=== PATIENT | female | born 1960 | race Caucasian/White ===

== ENCOUNTER → 2018-11-29 | Outpatient (CLI) | payer BC | LOC: WOUNDCARE 10:05 | PROVIDERS: ATTEND Nurse Practitioner | DX: E11.621 Type 2 diabetes mellitus with foot ulcer (principal); L97.512 Non-pressure chronic ulcer of other part of right foot with fat layer exposed | CPT/HCPCS: 11042 ==

== ENCOUNTER → 2018-12-06 | Outpatient (CLI) | payer BC | LOC: WOUNDCARE 09:57 | PROVIDERS: ATTEND Nurse Practitioner | DX: E11.621 Type 2 diabetes mellitus with foot ulcer (principal); L97.512 Non-pressure chronic ulcer of other part of right foot with fat layer exposed | CPT/HCPCS: 97597 ==

== ENCOUNTER → 2018-12-13 | Outpatient (CLI) | payer BC | LOC: EDBD 10:03 → WOUNDCARE 10:03 | PROVIDERS: ATTEND Nurse Practitioner | DX: E11.621 Type 2 diabetes mellitus with foot ulcer (principal); L97.512 Non-pressure chronic ulcer of other part of right foot with fat layer exposed | CPT/HCPCS: 87070; 87075; 87077; 87205; 99213 ==

== ENCOUNTER → 2018-12-20 | Outpatient (CLI) | payer BC | LOC: WOUNDCARE 09:52 | PROVIDERS: ATTEND Nurse Practitioner | DX: E11.621 Type 2 diabetes mellitus with foot ulcer (principal); L97.512 Non-pressure chronic ulcer of other part of right foot with fat layer exposed | CPT/HCPCS: 11042; 97597 ==

== ENCOUNTER → 2018-12-27 | Outpatient (CLI) | payer BC | LOC: WOUNDCARE 09:47 | PROVIDERS: ATTEND Surgery | DX: E11.621 Type 2 diabetes mellitus with foot ulcer (principal); L97.512 Non-pressure chronic ulcer of other part of right foot with fat layer exposed | CPT/HCPCS: 11042 ==

== ENCOUNTER → 2019-01-03 | Outpatient (CLI) | payer BC ==
--- NOTE | 2019-01-03 19:13 | Diagnostic Imaging Report ---
INDICATION: Swelling, concern for infection. TECHNIQUE: Three views of the right foot. CORRELATION STUDY: None. FINDINGS: Generalized soft tissue edema is present. Slight distortion of the subtalar joints with slight collapse of the hindfoot present. Alignment is otherwise anatomic. Freddy bony erosive or destructive changes are not suggested. No significant periosteal reaction. Mildly prominent plantar calcaneal spur formation. IMPRESSION: 1. Soft tissue swelling about the foot. No acute bony abnormality or freddy bony erosive or destructive change. If symptoms persist and/or clinically warranted, MRI would be more sensitive means for assessment of potential osteomyelitis. Dictated by: Dictated on workstation # [id number]
== END ==
LOC: RAD 11:10
PROVIDERS: ATTEND Nurse Practitioner
DX: E11.621 Type 2 diabetes mellitus with foot ulcer (principal); L97.512 Non-pressure chronic ulcer of other part of right foot with fat layer exposed; M79.89 Other specified soft tissue disorders
CPT/HCPCS: 73630

== ENCOUNTER → 2019-01-03 | Outpatient (CLI) | payer BC | LOC: WOUNDCARE 09:32 | PROVIDERS: ATTEND Nurse Practitioner | DX: E11.621 Type 2 diabetes mellitus with foot ulcer (principal); L97.512 Non-pressure chronic ulcer of other part of right foot with fat layer exposed ==

== ENCOUNTER → 2019-01-10 | Outpatient (CLI) | payer BC | LOC: WOUNDCARE 09:47 | PROVIDERS: ATTEND Nurse Practitioner | DX: E11.621 Type 2 diabetes mellitus with foot ulcer (principal); L97.512 Non-pressure chronic ulcer of other part of right foot with fat layer exposed ==

== ENCOUNTER → 2019-01-17 | Outpatient (CLI) | payer BC | LOC: WOUNDCARE 09:50 | PROVIDERS: ATTEND Nurse Practitioner | DX: E11.621 Type 2 diabetes mellitus with foot ulcer (principal); L97.512 Non-pressure chronic ulcer of other part of right foot with fat layer exposed | CPT/HCPCS: 11042; 87070; 87075; 87205 ==

== ENCOUNTER → 2019-01-24 | Outpatient (CLI) | payer BC | LOC: WOUNDCARE 09:52 | PROVIDERS: ATTEND Nurse Practitioner | DX: E11.621 Type 2 diabetes mellitus with foot ulcer (principal); L97.512 Non-pressure chronic ulcer of other part of right foot with fat layer exposed | CPT/HCPCS: 11042 ==

== ENCOUNTER → 2019-01-31 | Outpatient (CLI) | payer BC | LOC: WOUNDCARE 09:52 | PROVIDERS: ATTEND Nurse Practitioner | DX: E11.621 Type 2 diabetes mellitus with foot ulcer (principal); L97.512 Non-pressure chronic ulcer of other part of right foot with fat layer exposed | CPT/HCPCS: 11042 ==

== ENCOUNTER → 2019-02-07 | Outpatient (CLI) | payer BC | LOC: WOUNDCARE 12:45 | PROVIDERS: ATTEND Surgery | DX: E11.621 Type 2 diabetes mellitus with foot ulcer (principal); L97.512 Non-pressure chronic ulcer of other part of right foot with fat layer exposed; I89.0 Lymphedema, not elsewhere classified; L95.8 Other vasculitis limited to the skin | CPT/HCPCS: 11106 ==

== ENCOUNTER → 2019-02-14 | Outpatient (CLI) | payer BC | LOC: WOUNDCARE 09:32 | PROVIDERS: ATTEND Nurse Practitioner | DX: E11.621 Type 2 diabetes mellitus with foot ulcer (principal); L97.512 Non-pressure chronic ulcer of other part of right foot with fat layer exposed; L95.8 Other vasculitis limited to the skin; I89.0 Lymphedema, not elsewhere classified; L88 Pyoderma gangrenosum | CPT/HCPCS: 99213 ==

== ENCOUNTER → 2019-02-21 | Outpatient (CLI) | payer BC | LOC: WOUNDCARE 09:46 | PROVIDERS: ATTEND Nurse Practitioner | DX: E11.621 Type 2 diabetes mellitus with foot ulcer (principal); L97.512 Non-pressure chronic ulcer of other part of right foot with fat layer exposed; L95.8 Other vasculitis limited to the skin; I89.0 Lymphedema, not elsewhere classified; L88 Pyoderma gangrenosum | CPT/HCPCS: 99213 ==

== ENCOUNTER → 2019-03-14 | Outpatient (CLI) | payer BC | LOC: WOUNDCARE 09:51 | PROVIDERS: ATTEND Nurse Practitioner | DX: E11.621 Type 2 diabetes mellitus with foot ulcer (principal); L97.512 Non-pressure chronic ulcer of other part of right foot with fat layer exposed; L95.8 Other vasculitis limited to the skin; I89.0 Lymphedema, not elsewhere classified; L88 Pyoderma gangrenosum | CPT/HCPCS: 99213 ==

== ENCOUNTER → 2019-03-21 | Outpatient (CLI) | payer BC | LOC: WOUNDCARE 09:54 | PROVIDERS: ATTEND Nurse Practitioner | DX: E11.621 Type 2 diabetes mellitus with foot ulcer (principal); L97.512 Non-pressure chronic ulcer of other part of right foot with fat layer exposed; L95.8 Other vasculitis limited to the skin; I89.0 Lymphedema, not elsewhere classified; L88 Pyoderma gangrenosum | CPT/HCPCS: 99213 ==

== ENCOUNTER → 2019-03-28 | Outpatient (CLI) | payer BC | LOC: WOUNDCARE 09:45 | PROVIDERS: ATTEND Surgery | DX: E11.621 Type 2 diabetes mellitus with foot ulcer (principal); L97.512 Non-pressure chronic ulcer of other part of right foot with fat layer exposed; L95.8 Other vasculitis limited to the skin; I89.0 Lymphedema, not elsewhere classified; L88 Pyoderma gangrenosum | CPT/HCPCS: 99213 ==

== ENCOUNTER → 2019-04-04 | Outpatient (CLI) | payer BC | LOC: WOUNDCARE 09:55 | PROVIDERS: ATTEND Nurse Practitioner | DX: E11.621 Type 2 diabetes mellitus with foot ulcer (principal); L97.512 Non-pressure chronic ulcer of other part of right foot with fat layer exposed; L95.8 Other vasculitis limited to the skin; I89.0 Lymphedema, not elsewhere classified; L88 Pyoderma gangrenosum | CPT/HCPCS: 99213 ==

== ENCOUNTER → 2019-04-11 | Outpatient (CLI) | payer BC | LOC: WOUNDCARE 09:51 | PROVIDERS: ATTEND Nurse Practitioner | DX: E11.621 Type 2 diabetes mellitus with foot ulcer (principal); L88 Pyoderma gangrenosum; L97.512 Non-pressure chronic ulcer of other part of right foot with fat layer exposed; L95.8 Other vasculitis limited to the skin; I89.0 Lymphedema, not elsewhere classified | CPT/HCPCS: 99213 ==

== ENCOUNTER → 2019-04-18 | Outpatient (CLI) | payer BC ==
--- NOTE | 2019-04-18 12:41 | Diagnostic Imaging Report ---
INDICATION: Foot ulcer. COMPARISON: 01/03/2019 TECHNIQUE: Three radiographs of the right foot dated 04/18/2019. FINDINGS: No acute fracture or dislocation. No destructive osseous process. Small posterior and plantar calcaneal enthesophytes. Scattered degenerative changes are present, greatest within the hindfoot, particularly the subtalar joints and talonavicular joint. Prominent os trigonum is present. No suspicious radiopaque foreign body. IMPRESSION: 1. No acute osseous abnormality with scattered degenerative changes, greatest involving the hindfoot. 2. Soft tissue swelling without associated osseous destruction. If there remains clinical concern for underlying osteomyelitis, followup radiographs in 10-14 days could be obtained. Alternatively, an MRI of the foot would be an additional consideration. Dictated by: Dictated on workstation # [id number]
== END ==
LOC: RAD 10:59
PROVIDERS: ATTEND Nurse Practitioner
DX: E11.621 Type 2 diabetes mellitus with foot ulcer (principal); L88 Pyoderma gangrenosum; L97.512 Non-pressure chronic ulcer of other part of right foot with fat layer exposed; L95.8 Other vasculitis limited to the skin; I89.0 Lymphedema, not elsewhere classified
CPT/HCPCS: 73630

== ENCOUNTER → 2019-04-18 | Outpatient (CLI) | payer BC | LOC: WOUNDCARE 09:51 | PROVIDERS: ATTEND Nurse Practitioner | DX: L97.512 Non-pressure chronic ulcer of other part of right foot with fat layer exposed (principal); E11.621 Type 2 diabetes mellitus with foot ulcer; E11.52 Type 2 diabetes mellitus with diabetic peripheral angiopathy with gangrene; L95.8 Other vasculitis limited to the skin; I89.0 Lymphedema, not elsewhere classified; I96 Gangrene, not elsewhere classified | CPT/HCPCS: 99213 ==

== ENCOUNTER → 2019-04-25 | Outpatient (CLI) | payer BC | LOC: WOUNDCARE 09:45 | PROVIDERS: ATTEND Nurse Practitioner | DX: E11.621 Type 2 diabetes mellitus with foot ulcer (principal); L97.512 Non-pressure chronic ulcer of other part of right foot with fat layer exposed; L95.8 Other vasculitis limited to the skin; I89.0 Lymphedema, not elsewhere classified; E11.52 Type 2 diabetes mellitus with diabetic peripheral angiopathy with gangrene; I96 Gangrene, not elsewhere classified | CPT/HCPCS: 99213 ==

== ENCOUNTER → 2019-05-02 | Outpatient (CLI) | payer BC | LOC: WOUNDCARE 09:46 | PROVIDERS: ATTEND Nurse Practitioner | DX: E11.52 Type 2 diabetes mellitus with diabetic peripheral angiopathy with gangrene (principal); E11.621 Type 2 diabetes mellitus with foot ulcer; I96 Gangrene, not elsewhere classified; L97.512 Non-pressure chronic ulcer of other part of right foot with fat layer exposed; I89.0 Lymphedema, not elsewhere classified; L95.8 Other vasculitis limited to the skin | CPT/HCPCS: 99213 ==

== ENCOUNTER → 2019-05-09 | Outpatient (CLI) | payer BC | LOC: WOUNDCARE 09:55 | PROVIDERS: ATTEND Nurse Practitioner | DX: E11.621 Type 2 diabetes mellitus with foot ulcer (principal); E11.52 Type 2 diabetes mellitus with diabetic peripheral angiopathy with gangrene; L97.512 Non-pressure chronic ulcer of other part of right foot with fat layer exposed; I96 Gangrene, not elsewhere classified; L95.8 Other vasculitis limited to the skin; I89.0 Lymphedema, not elsewhere classified | CPT/HCPCS: 99213 ==

== ENCOUNTER → 2019-05-16 | Outpatient (CLI) | payer BC | LOC: WOUNDCARE 09:47 | PROVIDERS: ATTEND Nurse Practitioner | DX: E11.621 Type 2 diabetes mellitus with foot ulcer (principal); L97.512 Non-pressure chronic ulcer of other part of right foot with fat layer exposed; L95.8 Other vasculitis limited to the skin; I89.0 Lymphedema, not elsewhere classified; I96 Gangrene, not elsewhere classified | CPT/HCPCS: 99213 ==

== ENCOUNTER → 2019-05-30 | Outpatient (CLI) | payer BC, OTHER | LOC: WOUNDCARE 09:54 | PROVIDERS: ATTEND Nurse Practitioner | DX: E11.621 Type 2 diabetes mellitus with foot ulcer (principal); E11.52 Type 2 diabetes mellitus with diabetic peripheral angiopathy with gangrene; L97.512 Non-pressure chronic ulcer of other part of right foot with fat layer exposed; I96 Gangrene, not elsewhere classified; L95.8 Other vasculitis limited to the skin | CPT/HCPCS: 99213 ==

== ENCOUNTER → 2019-06-06 | Outpatient (CLI) | payer OTHER | LOC: WOUNDCARE 09:50 | PROVIDERS: ATTEND Nurse Practitioner | DX: E11.621 Type 2 diabetes mellitus with foot ulcer (principal); E11.52 Type 2 diabetes mellitus with diabetic peripheral angiopathy with gangrene; L88 Pyoderma gangrenosum; L97.512 Non-pressure chronic ulcer of other part of right foot with fat layer exposed; L95.8 Other vasculitis limited to the skin; I89.0 Lymphedema, not elsewhere classified | CPT/HCPCS: 17250 ==

== ENCOUNTER → 2019-06-12 | Outpatient (CLI) | payer OTHER ==
[2019-06-12 09:46] LABS: CALCIUM 10.3 MG/DL (8.5-10.1); CREATININE SERUM 1.38 MG/DL (0.60-1.30); POTASSIUM 3.4 MMOL/L (3.6-5.0)
== END ==
LOC: LAB FS 08:55
PROVIDERS: ATTEND Nurse Practitioner
DX: E11.621 Type 2 diabetes mellitus with foot ulcer (principal); L88 Pyoderma gangrenosum; L97.512 Non-pressure chronic ulcer of other part of right foot with fat layer exposed; L95.8 Other vasculitis limited to the skin; I89.0 Lymphedema, not elsewhere classified
CPT/HCPCS: 36415; 80048; 83036

== ENCOUNTER → 2019-06-13 | Outpatient (CLI) | payer OTHER | LOC: WOUNDCARE 09:49 | PROVIDERS: ATTEND Nurse Practitioner | DX: E11.621 Type 2 diabetes mellitus with foot ulcer (principal); L88 Pyoderma gangrenosum; L97.512 Non-pressure chronic ulcer of other part of right foot with fat layer exposed; L95.8 Other vasculitis limited to the skin; I89.0 Lymphedema, not elsewhere classified; E11.52 Type 2 diabetes mellitus with diabetic peripheral angiopathy with gangrene; I96 Gangrene, not elsewhere classified | CPT/HCPCS: 17250 ==

== ENCOUNTER → 2019-06-20 | Outpatient (CLI) | payer OTHER | LOC: WOUNDCARE 09:43 | PROVIDERS: ATTEND Nurse Practitioner | DX: E11.621 Type 2 diabetes mellitus with foot ulcer (principal); E11.52 Type 2 diabetes mellitus with diabetic peripheral angiopathy with gangrene; I96 Gangrene, not elsewhere classified; L97.512 Non-pressure chronic ulcer of other part of right foot with fat layer exposed; L95.8 Other vasculitis limited to the skin; I89.0 Lymphedema, not elsewhere classified | CPT/HCPCS: 99213 ==

== ENCOUNTER → 2019-06-27 | Outpatient (CLI) | payer OTHER | LOC: WOUNDCARE 09:49 | PROVIDERS: ATTEND Nurse Practitioner | DX: E11.621 Type 2 diabetes mellitus with foot ulcer (principal); E11.52 Type 2 diabetes mellitus with diabetic peripheral angiopathy with gangrene; L88 Pyoderma gangrenosum; L97.512 Non-pressure chronic ulcer of other part of right foot with fat layer exposed; L95.8 Other vasculitis limited to the skin; I89.0 Lymphedema, not elsewhere classified | CPT/HCPCS: 97597 ==

== ENCOUNTER → 2019-07-04 | Outpatient (CLI) | payer OTHER | LOC: WOUNDCARE 09:42 | PROVIDERS: ATTEND Nurse Practitioner | DX: E11.621 Type 2 diabetes mellitus with foot ulcer (principal); E11.52 Type 2 diabetes mellitus with diabetic peripheral angiopathy with gangrene; L88 Pyoderma gangrenosum; L97.512 Non-pressure chronic ulcer of other part of right foot with fat layer exposed; L95.8 Other vasculitis limited to the skin; I89.0 Lymphedema, not elsewhere classified | CPT/HCPCS: 99213 ==

== ENCOUNTER → 2019-07-11 | Outpatient (CLI) | payer OTHER | LOC: WOUNDCARE 09:46 | PROVIDERS: ATTEND Nurse Practitioner | DX: E11.621 Type 2 diabetes mellitus with foot ulcer (principal); E11.52 Type 2 diabetes mellitus with diabetic peripheral angiopathy with gangrene; L97.212 Non-pressure chronic ulcer of right calf with fat layer exposed; L88 Pyoderma gangrenosum; L95.8 Other vasculitis limited to the skin; I89.0 Lymphedema, not elsewhere classified | CPT/HCPCS: 99213 ==

== ENCOUNTER → 2019-07-18 | Outpatient (CLI) | payer OTHER | LOC: WOUNDCARE 09:51 | PROVIDERS: ATTEND Nurse Practitioner | DX: E11.621 Type 2 diabetes mellitus with foot ulcer (principal); E11.52 Type 2 diabetes mellitus with diabetic peripheral angiopathy with gangrene; L88 Pyoderma gangrenosum; L97.512 Non-pressure chronic ulcer of other part of right foot with fat layer exposed; L95.8 Other vasculitis limited to the skin; I89.0 Lymphedema, not elsewhere classified | CPT/HCPCS: 87070; 87075; 87077; 87205; 99213 ==

== ENCOUNTER → 2019-07-25 | Outpatient (CLI) | payer OTHER | LOC: WOUNDCARE 09:34 | PROVIDERS: ATTEND Nurse Practitioner | DX: E11.621 Type 2 diabetes mellitus with foot ulcer (principal); E11.52 Type 2 diabetes mellitus with diabetic peripheral angiopathy with gangrene; L88 Pyoderma gangrenosum; L97.512 Non-pressure chronic ulcer of other part of right foot with fat layer exposed; L95.8 Other vasculitis limited to the skin; I89.0 Lymphedema, not elsewhere classified | CPT/HCPCS: 99213 ==

== ENCOUNTER → 2019-08-01 | Outpatient (CLI) | payer OTHER | LOC: WOUNDCARE 09:49 | PROVIDERS: ATTEND Nurse Practitioner | DX: E11.621 Type 2 diabetes mellitus with foot ulcer (principal); E11.52 Type 2 diabetes mellitus with diabetic peripheral angiopathy with gangrene; L97.512 Non-pressure chronic ulcer of other part of right foot with fat layer exposed; L88 Pyoderma gangrenosum; L95.9 Vasculitis limited to the skin, unspecified; I89.0 Lymphedema, not elsewhere classified | CPT/HCPCS: 99213 ==

== ENCOUNTER → 2019-08-08 | Outpatient (CLI) | payer OTHER | LOC: WOUNDCARE 09:48 | PROVIDERS: ATTEND Nurse Practitioner | DX: E11.621 Type 2 diabetes mellitus with foot ulcer (principal); L88 Pyoderma gangrenosum; L97.512 Non-pressure chronic ulcer of other part of right foot with fat layer exposed; L95.8 Other vasculitis limited to the skin; I89.0 Lymphedema, not elsewhere classified; E11.52 Type 2 diabetes mellitus with diabetic peripheral angiopathy with gangrene ==

== ENCOUNTER → 2019-08-10 | Outpatient (CLI) | payer OTHER | LOC: WOUNDCARE 10:49 | PROVIDERS: ATTEND Nurse Practitioner | DX: E11.621 Type 2 diabetes mellitus with foot ulcer (principal); L97.512 Non-pressure chronic ulcer of other part of right foot with fat layer exposed; I10 Essential (primary) hypertension; M19.90 Unspecified osteoarthritis, unspecified site | CPT/HCPCS: 29581 ==

== ENCOUNTER → 2019-08-17 | Outpatient (CLI) | payer OTHER | LOC: WOUNDCARE 09:20 | PROVIDERS: ATTEND Nurse Practitioner | DX: E11.621 Type 2 diabetes mellitus with foot ulcer (principal); E11.52 Type 2 diabetes mellitus with diabetic peripheral angiopathy with gangrene; L88 Pyoderma gangrenosum; L97.512 Non-pressure chronic ulcer of other part of right foot with fat layer exposed; L95.8 Other vasculitis limited to the skin; I89.0 Lymphedema, not elsewhere classified | CPT/HCPCS: 11042 ==

== ENCOUNTER → 2019-08-22 | Outpatient (CLI) | payer OTHER | LOC: WOUNDCARE 09:53 | PROVIDERS: ATTEND Nurse Practitioner | DX: E11.621 Type 2 diabetes mellitus with foot ulcer (principal); L88 Pyoderma gangrenosum; L97.512 Non-pressure chronic ulcer of other part of right foot with fat layer exposed; L95.9 Vasculitis limited to the skin, unspecified; I89.0 Lymphedema, not elsewhere classified; E11.52 Type 2 diabetes mellitus with diabetic peripheral angiopathy with gangrene | CPT/HCPCS: 11042 ==

== ENCOUNTER → 2019-08-29 | Outpatient (CLI) | payer OTHER | LOC: WOUNDCARE 09:45 | PROVIDERS: ATTEND Nurse Practitioner | DX: E11.621 Type 2 diabetes mellitus with foot ulcer (principal); E11.52 Type 2 diabetes mellitus with diabetic peripheral angiopathy with gangrene; L88 Pyoderma gangrenosum; L95.8 Other vasculitis limited to the skin; I89.0 Lymphedema, not elsewhere classified; L97.512 Non-pressure chronic ulcer of other part of right foot with fat layer exposed | CPT/HCPCS: 11042 ==

== ENCOUNTER → 2019-09-04 | Outpatient (CLI) | payer OTHER ==
[~2019-09-04] MED LIST: ATOR10TA66; DAPS100T3; DICL75TA2; GABA-490; HYDR-3812; HYDR25TA4; PIOG30TA71; PNT400TCR; POTA20TA15; PRED5TAB
== END ==
LOC: WOUNDCARE 09:49
PROVIDERS: ATTEND Surgery
DX: E11.621 Type 2 diabetes mellitus with foot ulcer (principal); E11.52 Type 2 diabetes mellitus with diabetic peripheral angiopathy with gangrene; L97.511 Non-pressure chronic ulcer of other part of right foot limited to breakdown of skin; I89.0 Lymphedema, not elsewhere classified; L97.512 Non-pressure chronic ulcer of other part of right foot with fat layer exposed; L95.8 Other vasculitis limited to the skin; L88 Pyoderma gangrenosum
CPT/HCPCS: 11042

== ENCOUNTER → 2019-09-12 | Outpatient (CLI) | payer OTHER | LOC: WOUNDCARE 09:41 | PROVIDERS: ATTEND Nurse Practitioner | DX: E11.621 Type 2 diabetes mellitus with foot ulcer (principal); E11.52 Type 2 diabetes mellitus with diabetic peripheral angiopathy with gangrene; L97.511 Non-pressure chronic ulcer of other part of right foot limited to breakdown of skin; I89.0 Lymphedema, not elsewhere classified; L97.512 Non-pressure chronic ulcer of other part of right foot with fat layer exposed; L88 Pyoderma gangrenosum | CPT/HCPCS: 11042 ==

== ENCOUNTER 2019-09-24 12:54 | Emergency (ER) | payer OTHER ==
[~2019-09-24] VITALS: Ht 165.1 cm; Wt 231.0 kg
--- NOTE | 2019-09-24 13:12 | ED Integumentary General ---
General Stated Complaint: BLEEDING FROM LT CALF History of Present Illness Date Seen by Provider: Sep 24, 2019 Time Seen by Provider: 13:12 Initial Comments 48-year-old female presents with bleeding varicose vein on her left posterior calf. Her mom noticed that when she got back from [place]. There was significant amount of bleeding. She denies any scratch or injury. Patient denies any other systemic symptoms, is not on blood thinners. Allergies and Home Medications Allergies Coded Allergies: No Allergy Information Available (Unverified , 09/24/19) Patient Home Medication List Home Medication List Reviewed: Yes Review of Systems Review of Systems Constitutional: No see HPI, No chills Respiratory: no symptoms reported Cardiovascular: no symptoms reported Gastrointestinal: no symptoms reported Skin: see HPI Past Qycsmju-Pmrkky-Lpkszl Hx Past Med/Social Hx: Reviewed Nursing Past Med/Soc Hx Physical Exam Vital Signs Capillary Refill : General Appearance: other (severe morbid obesity) Cardiovascular: regular rate, rhythm, other (significant bilateral lower extremity edema) Respiratory: lungs clear Gastrointestinal: non tender, soft Neurologic/Psychiatric: morgue technician II-XII nml as tested, oriented x 3 Skin: other (patient with a bleeding varicosity on the left posterior calf) Progress/Results/Core Measures Results/Orders My Orders Orders - HOSSEIN ASHTON DO Lidocaine/Epi 2% 1:100,000 (Xylocaine/Ep (09/24/19 13:14) Lidocaine/Epi 2% 1:100,000 (Xylocaine/Ep (09/24/19 14:00) Progress Progress Note : Time: 14:12 Progress Note Bleeding was difficult to control but was finally obtained using a temporary stitch, silver nitrate, lidocaine with epi and direct pressure. Patient was dressed with a mild pressure dressing upon discharge. Instructed to leave the dressing on for 24 hours before removal. Patient was discharged in stable condition with bleeding controlled. Departure Impression Primary Impression: Bleeding from varicose veins of left lower extremity Disposition: 01 HOME, SELF-CARE Condition: Stable Departure-Patient Inst. Referrals: [facility] (PCP) Primary Care Physician GIRMA ZHANG APRN (Family) Primary Care Physician Patient Instructions: Wound Care (DC) HOSSEIN ASHTON DO Sep 24, 2019 13:12
[2019-09-24] MEDS ORDERED: LIDOCAINE/EPI 2% 1:100,00 (XYLOCAINE) 20 ML VIAL ONE (13:14)
[2019-09-24] MEDS ORDERED: LIDOCAINE/EPI 2% 1:100,00 (XYLOCAINE) 20 ML VIAL INJ ONE (14:00)
[2019-09-24 14:45] VITALS: BP 103/49
[2019-09-24] MEDS ORDERED: POTA20TA15 (18:08)
[2019-09-24] MEDS ORDERED: PRED5TAB (18:08)
[2019-09-24] MEDS ORDERED: HYDR-3812 (18:08)
[2019-09-24] MEDS ORDERED: PNT400TCR (18:08)
[2019-09-24] MEDS ORDERED: DAPS100T3 (18:08)
[2019-09-24] MEDS ORDERED: HYDR25TA4 (18:08)
[2019-09-24] MEDS ORDERED: PIOG30TA71 (18:08)
[2019-09-24] MEDS ORDERED: ATOR10TA66 (18:08)
[2019-09-24] MEDS ORDERED: GABA-490 (18:08)
[2019-09-24] MEDS ORDERED: DICL75TA2 (18:08)
== END 2019-09-24 14:45 | disposition home or self-care (01) ==
LOC: EDUNIT# 12:54 → ER FS 12:55
DX: I83.892 Varicose veins of left lower extremity with other complications (principal)
CPT/HCPCS: 12001

== ENCOUNTER → 2019-10-11 | Outpatient (CLI) | payer OTHER | LOC: WOUNDCARE 15:06 | PROVIDERS: ATTEND Orthopaedic Surgery Hand Surgery | DX: E11.621 Type 2 diabetes mellitus with foot ulcer (principal); I89.0 Lymphedema, not elsewhere classified; L97.512 Non-pressure chronic ulcer of other part of right foot with fat layer exposed; L95.8 Other vasculitis limited to the skin; L88 Pyoderma gangrenosum; I87.2 Venous insufficiency (chronic) (peripheral) | CPT/HCPCS: 11042 ==

== ENCOUNTER → 2019-10-17 | Outpatient (CLI) | payer OTHER | LOC: WOUNDCARE 14:45 | PROVIDERS: ATTEND Orthopaedic Surgery Hand Surgery | DX: E11.621 Type 2 diabetes mellitus with foot ulcer (principal); E11.52 Type 2 diabetes mellitus with diabetic peripheral angiopathy with gangrene; L97.512 Non-pressure chronic ulcer of other part of right foot with fat layer exposed; I89.0 Lymphedema, not elsewhere classified; L95.8 Other vasculitis limited to the skin; L88 Pyoderma gangrenosum; I87.2 Venous insufficiency (chronic) (peripheral); S81.802A Unspecified open wound, left lower leg, initial encounter | CPT/HCPCS: 97597 ==

== ENCOUNTER 2019-10-22 06:30 | Inpatient (IN) | payer OTHER ==
[~2019-10-22] VITALS: Ht 165.1 cm; Wt 242.1 kg
[2019-10-22] VITALS (19 sets, daily range): BP systolic 82–128; BP diastolic 46–72
[~2019-10-22 06:30] MED LIST changes: -ATOR10TA66; +ATOR10TA66 PO; -DICL75TA2; +DICL75TA2 PO; -GABA-490; +GABA-490 PO; -HYDR-3812; +HYDR-3812 PO; -HYDR25TA4; +HYDR25TA4 PO; -PIOG30TA71; +PIOG30TA71 PO; -PNT400TCR; +PNT400TCR PO; -POTA20TA15; +POTA20TA15 PO
[2019-10-22] MEDS ORDERED: NS IV 1000 ML 1,000 ML IV SCH ×3 (06:45→08:45)
--- NOTE | 2019-10-22 06:59 | ED General ---
General Chief Complaint: Cardiac/General Problems Stated Complaint: BLEEDING Source of Information: Patient, EMS, Family Exam Limitations: No Limitations History of Present Illness Date Seen by Provider: Oct 22, 2019 Time Seen by Provider: 06:54 Initial Comments The patient presents via EMS after having spontaneous bleeding from her left leg. The patient had a syncopal episode after soaking her bed in blood. She has had a similar episode in the past. EMS was able to stop the bleeding with a dressing to her left leg. Allergies and Home Medications Allergies Coded Allergies: benazepril (Unverified Allergy, Unknown, 09/24/19) ibuprofen (Unverified Adverse Reaction, Mild, nose bleed, 09/24/19) Patient Home Medication List Home Medication List Reviewed: Yes Review of Systems Review of Systems Constitutional: see HPI, weakness EENTM: no symptoms reported Respiratory: no symptoms reported Cardiovascular: syncope Gastrointestinal: no symptoms reported Genitourinary: no symptoms reported Musculoskeletal: no symptoms reported Skin: other (Spontaneous bleeding left leg.) Psychiatric/Neurological: No Symptoms Reported Hematologic/Lymphatic: See HPI, Easy Bleeding Immunological/Allergic: no symptoms reported Past Pqiwhgo-Bxxigm-Uqgrda Hx Past Med/Social Hx: Reviewed Nursing Past Med/Soc Hx Patient Social History Recent Foreign Travel: No Contact w/Someone Who Travel: No Recent Hopitalizations: No Immunizations Up To Date PED Vaccines UTD: Yes Date of Influenza Vaccine: Jul 04, 2019 Seasonal Allergies Seasonal Allergies: No Past Medical History Respiratory: No (BMI>80, Activity intolerance) Cardiac: Yes Chronic Edema/Swelling, High Cholesterol, Hypertension, Peripheral Vascular Neurological: No Genitourinary: No Gastrointestinal: No Musculoskeletal: Yes Arthritis Endocrine: Yes Diabetes, Non-Insulin dep HEENT: No Cancer: No Psychosocial: No Integumentary: Yes (developing weeping edema LE, Venous stasis discolored; chronic) Recent Skin Changes Blood Disorders: Yes (reports anemic) Physical Exam Vital Signs Vital Signs - First Documented 10/22/19 06:36 Temp 36.0 Pulse 100 Resp 26 B/P (MAP) 85/46 (59) Pulse Ox 95 O2 Delivery Room Air Capillary Refill : Height, Weight, BMI Height: '" Weight: lbs. oz. kg; 84.00 BMI Method: General Appearance: No Apparent Distress, Obese Eyes: Bilateral Eye Normal Inspection HEENT: Normal ENT Inspection Neck: Normal Inspection Respiratory: Decreased Breath Sounds Cardiovascular: Regular Rate, Rhythm Gastrointestinal: Normal Bowel Sounds Back: Normal Inspection Extremity: Swelling, Other (A dressing is in place on the left leg with evidence of previous bleeding.) Neurologic/Psychiatric: Alert, No Motor/Sensory Deficits Skin: Normal Color, Warm/Dry Progress/Results/Core Measures Suspected Sepsis SIRS Temperature: Pulse: Respiratory Rate: Laboratory Tests 10/22/19 06:58: White Blood Count 10.3 Blood Pressure / Mean: Laboratory Tests 10/22/19 06:58: Creatinine 1.35H, INR Comment 1.1, Platelet Count 378, Total Bilirubin 0.2 Results/Orders Lab Results Laboratory Tests Test 10/22/19 06:58 Range/Units White Blood Count 10.3 4.3-11.0 10^3/uL Red Blood Count 2.16 L 4.35-5.85 10^6/uL Hemoglobin 6.1 *L 11.5-16.0 G/DL Hematocrit 21 L 35-52 % Mean Corpuscular Volume 95 80-99 FL Mean Corpuscular Hemoglobin 28 25-34 PG Mean Corpuscular Hemoglobin Concent 30 L 32-36 G/DL Red Cell Distribution Width 15.5 H 10.0-14.5 % Platelet Count 378 130-400 10^3/uL Mean Platelet Volume 10.8 H 7.4-10.4 FL Neutrophils (%) (Auto) 77 H 42-75 % Lymphocytes (%) (Auto) 17 12-44 % Monocytes (%) (Auto) 4 0-12 % Eosinophils (%) (Auto) 2 0-10 % Basophils (%) (Auto) 0 0-10 % Neutrophils # (Auto) 7.9 H 1.8-7.8 X 10^3 Lymphocytes # (Auto) 1.7 1.0-4.0 X 10^3 Monocytes # (Auto) 0.5 0.0-1.0 X 10^3 Eosinophils # (Auto) 0.2 0.0-0.3 10^3/uL Basophils # (Auto) 0.0 0.0-0.1 10^3/uL Prothrombin Time 14.6 12.2-14.7 SEC INR Comment 1.1 0.8-1.4 Activated Partial Thromboplast Time 33 24-35 SEC Sodium Level 140 135-145 MMOL/L Potassium Level 3.7 3.6-5.0 MMOL/L Chloride Level 99 98-107 MMOL/L Carbon Dioxide Level 24 21-32 MMOL/L Anion Gap 17 H 5-14 MMOL/L Blood Urea Nitrogen 18 7-18 MG/DL Creatinine 1.35 H 0.60-1.30 MG/DL Estimat Glomerular Filtration Rate 42 BUN/Creatinine Ratio 13 Glucose Level 288 H 70-105 MG/DL Calcium Level 9.0 8.5-10.1 MG/DL Corrected Calcium 9.8 8.5-10.1 MG/DL Magnesium Level 1.5 L 1.6-2.4 MG/DL Total Bilirubin 0.2 0.1-1.0 MG/DL Aspartate Amino Transf (AST/SGOT) 15 5-34 U/L Alanine Aminotransferase (ALT/SGPT) 18 0-55 U/L Alkaline Phosphatase 51 40-136 U/L Myoglobin 81.8 10.0-92.0 NG/ML Troponin I < 0.30 <0.30 NG/ML Total Protein 6.1 L 6.4-8.2 GM/DL Albumin 3.0 L 3.2-4.5 GM/DL My Orders Orders - CORINNE MARROQUIN MD Cbc With Automated Diff (10/22/19 06:43) Magnesium (10/22/19 06:43) Chest 1 View Ap/Pa Only (10/22/19 06:43) Ekg Tracing (10/22/19 06:43) Comprehensive Metabolic Panel (10/22/19 06:43) Myoglobin Serum (10/22/19 06:43) Protime With Inr (10/22/19 06:43) Partial Thromboplastin Time (10/22/19 06:43) O2 (10/22/19 06:43) Monitor-Rhythm Ecg Trace Only (10/22/19 06:43) Lipid Panel (10/23/19 06:00) Ed Iv/Invasive Line Start (10/22/19 06:43) Troponin I Fs (10/22/19 06:43) Ns Iv 1000 Ml (Sodium Chloride 0.9%) (10/22/19 06:45) Type And Screen (10/22/19 06:49) Lidocaine 1% Inj 20 Ml (Xylocaine 1% Inj (10/22/19 07:08) Blood Culture (10/22/19 07:27) Ns Iv 1000 Ml (Sodium Chloride 0.9%) (10/22/19 08:00) Vital Signs/I&O 10/22/19 06:36 Temp 36.0 Pulse 100 Resp 26 B/P (MAP) 85/46 (59) Pulse Ox 95 O2 Delivery Room Air Capillary Refill : Progress Note : Time: 08:02 Progress Note The patient's hemoglobin was 6.1 g. The patient's blood pressure was in the 70s systolic. Patient received a liter of normal saline. Type and cross has been done. Dr. Louie excepted the patient transferred to [place]. Dr. Chery was consulate he will see the patient for surgery evaluation of the varicose vein that is currently not bleeding and the left leg. Departure Communication (Admissions) Time/Spoke to Admitting Phy: 08:04 Dr. Louie Time/Spoke to Consulting Phy: 08:04 Dr. Douglas Impression Primary Impression: Anemia Qualified Codes: D64.89 - Other specified anemias Additional Impression: Varicose vein of leg Qualified Codes: I83.92 - Asymptomatic varicose veins of left lower extremity Disposition: 02 XFER SHT-TRM HOSP Condition: Improved Admissions Decision to Admit Reason: Admit from ER (General) Decision to Admit/Date: Oct 22, 2019 Time/Decision to Admit Time: 08:09 Transfer Transfer Reason: Exceeds level of care Time Spoke to Accepting Phy: 08:[address] Louie and Dr. Douglas Transfer Time: 08:08 Transfer Facility: [facility] Method of Transfer: EMS Departure-Patient Inst. Referrals: [facility] (PCP) Primary Care Physician GIRMA ZHANG APRN (Family) Primary Care Physician CORINNE MARROQUIN MD Oct 22, 2019 06:59
[2019-10-22] MEDS ORDERED: LIDOCAINE 1% INJ 20 ML 20 ML VIAL ONE (07:08)
[2019-10-22 07:16] LABS: MEAN CORPUSCULAR HEMOGLOBIN 28 PG (25-34); MEAN CORPUSCULAR HGB CONC 30 G/DL (32-36); MEAN CORPUSCULAR VOLUME 95 FL (80-99); MEAN PLATELET VOLUME 10.8 FL (7.4-10.4); PLATELET COUNT 378 10^3/uL (130-400); RED CELL DISTRIBUTION WIDTH 15.5 % (10.0-14.5); WHITE BLOOD COUNT 10.3 10^3/uL (4.3-11.0)
[2019-10-22 07:17] LABS: BASOPHILS % (AUTO) 0 % (0-10); EOSINOPHILS # (AUTO) 0.2 10^3/uL (0.0-0.3); EOSINOPHILS % (AUTO) 2 % (0-10); LYMPHOCYTES # (AUTO) 1.7 X 10^3 (1.0-4.0); LYMPHOCYTES % (AUTO) 17 % (12-44); MONOCYTES # (AUTO) 0.5 X 10^3 (0.0-1.0); MONOCYTES % (AUTO) 4 % (0-12); NEUTROPHILS # (AUTO) 7.9 X 10^3 (1.8-7.8); NEUTROPHILS % (AUTO) 77 % (42-75)
[2019-10-22 07:19] LABS: HEMATOCRIT 21 % (35-52); HEMOGLOBIN 6.1 G/DL (11.5-16.0)
[2019-10-22] MEDS ORDERED: methylPREDNISolone 125 MG (Solu-MEDROL) VIAL IVP ONE (07:30)
--- NOTE | 2019-10-22 07:30 | Diagnostic Imaging Report ---
CHEST 1 VIEW AP/PA ONLY Indication: Shortness of breath and syncope Comparison: None available. Findings: Examination is limited due to patient's extremely large body habitus. This results in hazy summation shadow over the lung bases. No gross pleural effusion or pneumothorax. Cardiac silhouette is suboptimally evaluated. Impression: 1. Very limited examination due to a combination of patient's extremely large body habitus and portable technique. No large pleural effusion or pneumothorax. Dictated by: Dictated on workstation # [id number]
[2019-10-22 07:52] LABS: INR 1.1 (0.8-1.4); PROTHROMBIN TIME PATIENT 14.6 SEC (12.2-14.7)
[2019-10-22 07:54] LABS: BILIRUBIN,TOTAL 0.2 MG/DL (0.1-1.0); CREATININE SERUM 1.35 MG/DL (0.60-1.30); MAGNESIUM 1.5 MG/DL (1.6-2.4); POTASSIUM 3.7 MMOL/L (3.6-5.0)
[2019-10-22 07:55] LABS: TOTAL PROTEIN 6.1 GM/DL (6.4-8.2)
[2019-10-22] MEDS: NS IV 1000 ML 1,000 ML IV SCH ×2 (10:00→20:08)
[2019-10-22] MEDS ORDERED: NS IV 500 ML 500 ML IV SCH ×2 (10:00→23:15)
[2019-10-22] MEDS ORDERED: CATHETER FLUSH 10 ML SYR IV PRN (10:00)
--- NOTE | 2019-10-22 10:41 | History & Physical-Hospitalist ---
History of Present Illness HPI/Chief Complaint this is a 48-year-old white female with morbid obesity and chronic venous Insufficiency. She awakened this morning with blood soaked dressing on her left lower leg. She first started having trouble with this leg September 24 when she had bleeding from a varicose vein. she has been being followed by wound care here. she was unable to get the bleeding stopped and presented to the [place] emergency room. There her hemoglobin was found to be 6.1. She was accepted in transfer for surgical consultation and further evaluation. Currently the leg has a pressure dressing and bleeding has been curtailed Source: patient Exam Limitations: no limitations Date Seen 10/22/19 Time Seen by a Provider: 09:00 Attending Physician Christina Louie MD [facility] Referring Physician Date of Admission Oct 22, 2019 at 08:20 Home Medications & Allergies Home Medications Reviewed patient Home Medication Reconciliation performed by pharmacy medication reconciliations mold repair technician and/or nursing. Patients Allergies have been reviewed. Allergies Allergies Coded Allergies benazepril (Unverified Allergy, Unknown, 09/24/19) ibuprofen (Unverified Adverse Reaction, Mild, nose bleed, 09/24/19) Past Vtsxibe-Slabuo-Btkffo Hx Past Med/Social Hx: Reviewed Nursing Past Med/Soc Hx Patient Social History Marrital Status: single Employed/Student: unemployed Recent Foreign Travel: No Contact w/other who traveled: No Recent Hopitalizations: No Recent Infectious Disease Expo: No Immunizations Up To Date Pediatric: Yes Date of Influenza Vaccine: Jul 22, 2019 Seasonal Allergies Seasonal Allergies: No Past Medical History Surgeries: Orthopedic (back fusion) Respiratory: Sleep Apnea (on CPAP) Cardiac: Chronic Edema/Swelling, High Cholesterol, Hypertension, Peripheral Vascular Musculoskeletal: Arthritis Endocrine: Diabetes, Non-Insulin dep Skin/Integumentary: Recent Skin Changes History of Blood Disorders: Yes (reports anemic) Family History No Pertinent Family Hx Review of Systems Constitutional: weight gain EENTM: no symptoms reported Respiratory: dyspnea on exertion Cardiovascular: no symptoms reported Gastrointestinal: no symptoms reported Genitourinary: no symptoms reported Musculoskeletal: see HPI Skin: see HPI, change in color Psychiatric/Neurological: No Symptoms Reported Physical Exam Physical Exam Vital Signs Vital Signs - First Documented 10/22/19 06:36 Temp 36.0 Pulse 100 Resp 26 B/P (MAP) 85/46 (59) Pulse Ox 95 O2 Delivery Room Air Capillary Refill : Less Than 3 Seconds Height, Weight, BMI Height: '" Weight: lbs. oz. kg; 88.00 BMI Method: General Appearance: No Apparent Distress, Obese HEENT: Other (facial hair) Neck: Other (short thick with [place]) Respiratory: Lungs Clear, Normal Breath Sounds, No Accessory Muscle Use, No Respiratory Distress Cardiovascular: Regular Rate, Rhythm, No Gallop, No Murmur Gastrointestinal: Distended, Other (obese with a large panniculus) Rectal: Deferred Genital/Rectal: Other (strong odor from the vaginal area) Extremity: Pedal Edema, Other (chronic venous stasis changes with elep) Neurologic/Psychiatric: Alert, Oriented x3, No Motor/Sensory Deficits, Normal Mood/Affect Skin: Pallor Results Results/Procedures Labs Laboratory Tests 10/22/19 06:58 Patient resulted labs reviewed. Assessment/Plan Admission Diagnosis repeated bleeding from varicosities Severe anemia weakness with syncope Obstructive sleep apnea Insulin resistance Morbid obesity Hypertension UTI Plan to admit and transfuse for hemoglobin up above 8 since she is symptomatic, consult surgery and possibly wound care, culture urine Admission Status: Observation Clinical Quality Measures DVT/VTE Risk/Contraindication: Risk Factor Score Per Nursin RFS Level Per Nursing on Admit: 3=High Copy Copies To 1: [facility]/RA FORTE MD Oct 22, 2019 10:41
[2019-10-22 10:52] LABS: BILIRUBIN,URINE NEGATIVE (NEGATIVE); CLARITY,URINE CLEAR; COLOR,URINE YELLOW; GLUCOSE, URINE (UA) NEGATIVE (NEGATIVE); KETONES,URINE TRACE (NEGATIVE); LEUKOCYTE ESTERASE ,URINE NEGATIVE (NEGATIVE); NITRITE,URINE NEGATIVE (NEGATIVE); PROTEIN,URINE TRACE (NEGATIVE)
--- NOTE | 2019-10-22 10:56 | Consultation - Surgery ---
YOSEPH MEJIA [facility] 10/22/19 1056: History of Present Illness History of Present Illness Patient Consulted On(roselyn/time) 10/22/19 10:48 Date Seen by Provider: Oct 22, 2019 Time Seen by Provider: 10:30 History of Present Illness Pt here from [facility] for bleeding from a wound on her left leg and associated anemia. She is pleasant and not in any apparent distress currently. She reports having a varicose vein that was bleeding one month ago that was repaired with sutures and cautery. She has been seeing wound care at this hospital for the chronic healing wound on her leg at the site of varicose repair. She states that last night her leg starting hurting with a pressure feeling followed by intense itching that made it hard for her to sleep. She states she got up to go to the bathroom and the pain made it hard for her to walk she asked her mom to change the wrapping on her leg stating it was too tight. When her mom changed the dressing she states it started bleeding significantly and the patients says she had several syncopal episodes during that time. Bleeding was described as constant and non pulsatile and enough to soak her robe through. THe bleeding was able to be stopped by time she arrived to the ER. Pt does report a chronic shortness of breath since February 2019, but has had increased non productive cough since last week. Allergies and Home Medications Allergies Coded Allergies: benazepril (Unverified Allergy, Unknown, 09/24/19) ibuprofen (Unverified Adverse Reaction, Mild, nose bleed, 09/24/19) Past Fucppxp-Kcuurs-Nrkfsy Hx Patient Social History Recent Foreign Travel: No Contact w/Someone Who Travel: No Recent Infectious Disease Expo: No Recent Hopitalizations: No Immunizations Up To Date PED Vaccines UTD: Yes Date of Influenza Vaccine: Jul 22, 2019 Seasonal Allergies Seasonal Allergies: No Surgeries History of Surgeries: Yes Surgeries: Orthopedic (back fusion) Respiratory History of Respiratory Disorde: No (BMI>80, Activity intolerance) Cardiovascular History of Cardiac Disorders: Yes Cardiac Disorders: Chronic Edema/Swelling, High Cholesterol, Hypertension, Peripheral Vascular Neurological History of Neurological Disord: No Genitourinary History of Genitourinary Disor: No Gastrointestinal History of Gastrointestinal Di: No Musculoskeletal History of Musculoskeletal Dis: Yes Musculoskeletal Disorders: Arthritis Endocrine History of Endocrine Disorders: Yes Endocrine Disorders: Diabetes, Non-Insulin dep HEENT History of HEENT Disorders: No Cancer History of Cancer: No Psychosocial History of Psychiatric Problem: No Integumentary History of Skin or Integumenta: Yes (developing weeping edema LE, Venous stasis discolored; chronic) Skin/Integumentary Disorders: Recent Skin Changes Blood Transfusions History of Blood Disorders: Yes (reports anemic) Family Medical History Significant Family History: No Pertinent Family Hx Review of Systems-General Constitutional: No chills, No fever EENTM: No nose congestion Respiratory: cough, dyspnea on exertion, wheezing Cardiovascular: chest pain (during a coughing fit), edema; No palpitations Gastrointestinal: No abdominal pain, No constipation, No diarrhea, No nausea, No vomiting Genitourinary: No dysuria, No incontinence Musculoskeletal: back pain, joint swelling Skin: lesions (Left lower leg), pruritus (Left lower leg) Psychiatric/Neurological: Headache (Minor intermittent), Numbness (Bilateral feet) Physical Exam-General Problems Physical Exam Vital Signs Vital Signs - First Documented 10/22/19 06:36 Temp 36.0 Pulse 100 Resp 26 B/P (MAP) 85/46 (59) Pulse Ox 95 O2 Delivery Room Air Capillary Refill : Less Than 3 Seconds General Appearance: no apparent distress, obese HEENT: PERRL/EOMI Neck: supple, normal inspection Respiratory: chest non-tender, lungs clear, no respiratory distress Cardiovascular: normal peripheral pulses, regular rate, rhythm, no murmur Gastrointestinal: non tender, soft Extremities: No non-tender (Left leg at ulcer site), No normal inspection (venous stasis bilateral LE); pedal edema Neurologic/Psychiatric: alert, normal mood/affect, oriented x 3 Skin: warm/dry, other (venous stasis dermatatitis) Lymphatic: no adenopathy Data Review Labs Laboratory Tests 10/22/19 06:58: White Blood Count 10.3, Red Blood Count 2.16L, Hemoglobin 6.1*L, Hematocrit 21L, Mean Corpuscular Volume 95, Mean Corpuscular Hemoglobin 28, Mean Corpuscular Hemoglobin Concent 30L, Red Cell Distribution Width 15.5H, Platelet Count 378, Mean Platelet Volume 10.8H, Neutrophils (%) (Auto) 77H, Lymphocytes (%) (Auto) 17, Monocytes (%) (Auto) 4, Eosinophils (%) (Auto) 2, Basophils (%) (Auto) 0, Neutrophils # (Auto) 7.9H, Lymphocytes # (Auto) 1.7, Monocytes # (Auto) 0.5, Eosinophils # (Auto) 0.2, Basophils # (Auto) 0.0, Prothrombin Time 14.6, INR Comment 1.1, Activated Partial Thromboplast Time 33, Sodium Level 140, Potassium Level 3.7, Chloride Level 99, Carbon Dioxide Level 24, Anion Gap 17H, Blood Urea Nitrogen 18, Creatinine 1.35H, Estimat Glomerular Filtration Rate 42, BUN/Creatinine Ratio 13, Glucose Level 288H, Calcium Level 9.0, Corrected Calcium 9.8, Magnesium Level 1.5L, Total Bilirubin 0.2, Aspartate Amino Transf (AST/SGOT) 15, Alanine Aminotransferase (ALT/SGPT) 18, Alkaline Phosphatase 51, Myoglobin 81.8, Troponin I < 0.30, Total Protein 6.1L, Albumin 3.0L Assessment/Plan Assessment/Plan Assessment/Plan Venous stasis bilateral lower extremity, chronic ulcer present -monitor for bleeding -Pt needs vein center for correction Anemia -Stool Occult blood test -Outpatient vs inpatient EGD/Colonoscopy depending on results of FOBT -Monitor Hgb, transfusion prbc prn Clinical Quality Measures DVT/VTE Risk/Contraindication: Risk Factor Score Per Nursin RFS Level Per Nursing on Admit: 3=High FADI DOUGLAS DO 10/22/19 1218: History of Present Illness History of Present Illness Time Seen by Provider: 11:10 History of Present Illness Pt seen and examined. Spoke with pt and her mother, both state she has only had 2 episodes of bleeding from varicose vein "but it was a lot". Pt denies any hematemesis, hematochezia or melena. Pt has chronic right foot ulcers and says she can't walk because of them. Allergies and Home Medications Allergies Coded Allergies: benazepril (Unverified Allergy, Unknown, 09/24/19) ibuprofen (Unverified Adverse Reaction, Mild, nose bleed, 09/24/19) Patient Home Medication List Home Medication List Reviewed: Yes Past Ecepvku-Hseuyt-Hdrunw Hx Cardiovascular Cardiac Disorders: Hypertension Cancer History of Cancer: No Blood Transfusions History of Blood Disorders: No Adverse Reaction to a Blood Tr: No Family Medical History Significant Family History: Diabetes, Hypertension Review of Systems-General EENTM: No blurred vision, No double vision, No epistaxis Genitourinary: No hematuria Musculoskeletal: joint pain, muscle stiffness Skin: other (chronic venous stasis changes, ulcers right foot) Psychiatric/Neurological: Denies Anxiety, Denies Depressed Other Prior to this pt denies any abnormal bleeding or bruising Physical Exam-General Problems Physical Exam General Appearance: obese (super morbidly) Eyes: Bilateral Eye PERRL, Bilateral Eye EOMI HEENT: pharynx normal; No scleral icterus (R), No scleral icterus (L) Respiratory: chest non-tender, lungs clear, no respiratory distress Cardiovascular: regular rate, rhythm, no murmur Gastrointestinal: non tender, soft Extremities: no calf tenderness, other (chronic venous stasis changes, appx 6cm diameter ulceration left posterior lower leg, with visible clot (probably clotting of vein that was bleeding)) Neurologic/Psychiatric: alert, normal mood/affect, oriented x 3 Skin: warm/dry, other (venous stasis dermatatitis) Lymphatic: no adenopathy (neck, axilla or groin) Assessment/Plan Assessment/Plan Assessment/Plan Anemia Morbid Obesity Varicose veins of Lower Legs with suspected reflux of blood Will hold off on EGD and colonoscopy unless FOBT is positive. Pt needs ablation of her Varicose veins; it is the only thing that will allow her ulcers in both LE to heal and at the same time should prevent further bleeding. Unfortunately she cannot get that done here. Supervisory-Addendum Brief Verification & Attestation Participated in pt care: history, MDM, physical Personally performed: exam, history, MDM Care discussed with: Medical Student Procedures: n/a Verification and Attestation of Medical Student E/M Service A medical student performed and documented this service in my presence. I reviewed and verified all information documented by the medical student and made modifications to such information, when appropriate. I personally performed the physical exam and medical decision making. Fadi Douglas, Oct 22, 2019,12:22 YOSEPH MEJIA Oct 22, 2019 10:56 FADI DOUGLAS DO Oct 22, 2019 12:18
[2019-10-22] MEDS ORDERED: RX-HYDROCODONE/APAP 5/325 MG #4 TAB PK PO PRN (11:00)
[2019-10-22 11:01] LABS: AMORPHOUS SEDIMENT,UR LARGE AMOR URATES /LPF; BACTERIA,URINE FEW /HPF; HYALINE CASTS, URINE 0-2 /LPF; WBC,URINE 0-2 /HPF
[2019-10-22] MEDS ORDERED: HYDROcodone/APAP 5 MG/325 MG (LORTAB) TAB PO PRN (11:15)
[2019-10-22] MEDS ORDERED: GLIP5POW MC (14:31)
[2019-10-22] MEDS ORDERED: MINO2.5T PO (14:39)
[2019-10-22] MEDS ORDERED: OLME20TA24 PO (14:39)
[2019-10-22] MEDS ORDERED: MTP25TSR PO (14:39)
[2019-10-22] MEDS ORDERED: FURO20TA4 PO (14:39)
[2019-10-22] MEDS ORDERED: GLIP5TAB13 PO (14:39)
[2019-10-22] MEDS ORDERED: METF-398 PO (14:39)
[2019-10-22] MEDS: metFORMIN 500 MG (GLUCOPHAGE) TAB PO SCH (17:11)
[2019-10-22] MEDS: HYDROcodone/APAP 5 MG/325 MG (LORTAB) TAB PO PRN ×2 (18:34→23:20)
[2019-10-22] MEDS: GABAPENTIN 300 MG (NEURONTIN) CAP PO SCH (20:03)
[2019-10-22] MEDS ORDERED: metFORMIN 850 MG (GLUCOPHAGE) TAB PO SCH (21:00)
[2019-10-22] MEDS ORDERED: GABAPENTIN 400 MG (NEURONTIN) CAP PO SCH (21:00)
[2019-10-22 22:23] LABS: HEMOGLOBIN 6.9 G/DL (11.5-16.0)
[2019-10-22 23:07] LABS: HEMOGLOBIN 6.9 G/DL (11.5-16.0)
[2019-10-23] VITALS (17 sets, daily range): BP systolic 104–140; BP diastolic 51–78
[2019-10-23 04:14] LABS: BASOPHILS % (AUTO) 0 % (0-10); EOSINOPHILS # (AUTO) 0.2 10^3/uL (0.0-0.3); EOSINOPHILS % (AUTO) 2 % (0-10); HEMATOCRIT 23 % (35-52); HEMOGLOBIN 7.4 G/DL (11.5-16.0); LYMPHOCYTES # (AUTO) 1.7 X 10^3 (1.0-4.0); LYMPHOCYTES % (AUTO) 17 % (12-44); MEAN CORPUSCULAR HEMOGLOBIN 28 PG (25-34); MEAN CORPUSCULAR HGB CONC 32 G/DL (32-36); MEAN CORPUSCULAR VOLUME 88 FL (80-99); MEAN PLATELET VOLUME 11.1 FL (7.4-10.4); MONOCYTES # (AUTO) 0.9 X 10^3 (0.0-1.0); MONOCYTES % (AUTO) 9 % (0-12); NEUTROPHILS # (AUTO) 7.4 X 10^3 (1.8-7.8); NEUTROPHILS % (AUTO) 72 % (42-75); PLATELET COUNT 311 10^3/uL (130-400); RED CELL DISTRIBUTION WIDTH 17.6 % (10.0-14.5); WHITE BLOOD COUNT 10.3 10^3/uL (4.3-11.0)
[2019-10-23 04:37] LABS: ALBUMIN 3.3 GM/DL (3.2-4.5); BILIRUBIN,TOTAL 0.5 MG/DL (0.1-1.0); CALCIUM 8.8 MG/DL (8.5-10.1); CREATININE SERUM 1.08 MG/DL (0.60-1.30); MAGNESIUM 1.5 MG/DL (1.6-2.4); PHOSPHORUS 3.5 MG/DL (2.3-4.7); POTASSIUM 3.5 MMOL/L (3.6-5.0); TOTAL PROTEIN 6.2 GM/DL (6.4-8.2)
[2019-10-23] MEDS: POTASSIUM CL 10MEQ/50ML IVPB 50 ML IV SCH ×3 (05:12→06:32)
[2019-10-23] MEDS: KCL 20 MEQ TAB (K-DUR) PO SCH (05:12)
[2019-10-23] MEDS: MAGNESIUM 1 GM/100 ML IVPB 100 ML IV SCH ×3 (05:12→06:32)
[2019-10-23 05:42] LABS: HEMOGLOBIN 7.4 G/DL (11.5-16.0)
--- NOTE | 2019-10-23 05:59 | Pulmonary Consultation ---
History of Present Illness History of Present Illness Date Seen by Provider: Oct 23, 2019 Time Seen by Provider: 07:41 Date of Admission History of Present Illness 48yo with hx of morbid obesity and chronic venous insufficiency and LE wounds follows with wound care presented to ED secondary to acute bleeding. She woke up and found her bed soaked with blood from her left lower leg. She started having bleeding from varicose veins back in Sep. She was found to have Hb of 6.1. PT was admitted to ICU for close observation and surgical consult. Allergies and Home Medications Allergies Coded Allergies: benazepril (Unverified Allergy, Unknown, 09/24/19) ibuprofen (Unverified Adverse Reaction, Mild, nose bleed, 09/24/19) Home Medications Glipizide 5 Gm Powder, 5 GM MC DAILY, (Reported) Metoprolol Succinate 25 Mg Tab.er.24h, 24 MG DAILY, (Reported) Past Yqbsbcl-Mxzlhe-Jmnnix Hx Past Med/Social Hx: Reviewed Nursing Past Med/Soc Hx Patient Social History Recent Foreign Travel: No Contact w/Someone Who Travel: No Recent Infectious Disease Expo: No Recent Hopitalizations: No Physical Abuse: No Sexual Abuse: No Mistreated: No Fear: No Immunizations Up To Date PED Vaccines UTD: Yes Date of Influenza Vaccine: Jul 22, 2019 Seasonal Allergies Seasonal Allergies: No Past Medical History Surgeries: Yes Orthopedic (back fusion) Respiratory: No (BMI>80, Activity intolerance) Cardiac: Yes Hypertension Neurological: No Genitourinary: No Gastrointestinal: No Musculoskeletal: Yes Arthritis Endocrine: Yes Diabetes, Non-Insulin dep HEENT: No Cancer: No Psychosocial: No Integumentary: Yes (developing weeping edema LE, Venous stasis discolored; chronic) Recent Skin Changes Blood Disorders: No Adverse Reaction/Blood Tranf: No Family Medical History Diabetes, Hypertension Review of Systems Time Seen by Provider: 07:44 Constitutional: Sweats, Weakness, Malaise; No: Fever, Chills, Other Eyes: No: Pain, Vision change, Conjunctivae inflammation, Eyelid inflammation, Other, Redness ENT: No: Ear pain, Ear discharge, Nose pain, Nose discharge, Nose congestion, Mouth pain, Mouth swelling, Throat pain, Throat swelling, Other Respiratory: Cough, Dry, Shortness of breath, SOB with excertion; No: Wheezing, Hemoptysis, Pleuritic Pain, Sputum, Wheezing, Other Sepsis Event Evaluation Height, Weight, BMI Height: '" Weight: lbs. oz. kg; 88.00 BMI Method: Exam Exam Vital Signs Date Time Temp Pulse Resp B/P (MAP) Pulse Ox O2 Delivery O2 Flow Rate FiO2 10/23/19 05:00 101 20 109/53 (71) 93 Nasal Cannula 3.00 10/23/19 04:00 84 8 110/59 (76) 94 Nasal Cannula 3.00 10/23/19 03:20 100 Nasal Cannula 3.00 10/23/19 03:20 36.2 10/23/19 03:00 87 12 117/78 (91) 96 Nasal Cannula 3.00 10/23/19 02:21 36.0 85 124/58 Nasal Cannula 3.00 10/23/19 02:00 86 34 117/63 (81) 100 Nasal Cannula 3.00 10/23/19 01:00 87 11 104/51 (68) 100 Nasal Cannula 3.00 10/23/19 00:46 99 10/23/19 00:10 36.3 92 12 127/70 Nasal Cannula 3.00 10/23/19 00:08 36.3 89 12 127/70 100 Nasal Cannula 3.00 10/23/19 00:00 87 10 121/76 (91) 100 Nasal Cannula 3.00 10/22/19 23:54 36.1 84 10 126/69 Nasal Cannula 3.00 10/22/19 23:11 36.0 10/22/19 23:04 100 Nasal Cannula 3.00 10/22/19 23:00 93 15 128/67 (87) 97 Nasal Cannula 3.00 10/22/19 22:00 78 15 113/72 (86) 99 Nasal Cannula 3.00 10/22/19 21:00 86 8 109/47 (67) 100 Nasal Cannula 3.00 10/22/19 20:07 36.2 86 12 100 Nasal Cannula 3.00 10/22/19 20:00 86 26 123/64 (83) 100 Nasal Cannula 3.00 10/22/19 20:00 100 Nasal Cannula 3.00 10/22/19 20:00 36.0 10/22/19 19:00 89 7 113/54 (73) 100 Nasal Cannula 3.00 10/22/19 18:40 87 1/19/20 18:00 85 17 125/63 (83) 98 Nasal Cannula 3.00 10/22/19 17:00 37.0 86 11 121/56 100 Nasal Cannula 3.00 10/22/19 17:00 81 9 121/56 (77) 100 Nasal Cannula 3.00 10/22/19 16:40 37.0 80 14 117/72 100 Nasal Cannula 3.00 10/22/19 16:08 36.9 89 15 97/49 98 Nasal Cannula 3.00 10/22/19 16:00 87 21 97/49 (65) 98 Nasal Cannula 3.00 10/22/19 16:00 36.2 10/22/19 16:00 100 Nasal Cannula 3.00 10/22/19 15:00 80 100/52 (68) 98 Nasal Cannula 3.00 10/22/19 14:00 98 18 98/52 (67) 100 Nasal Cannula 3.00 10/22/19 13:00 68 8 96/64 (75) 97 Nasal Cannula 3.00 10/22/19 13:00 96 10/22/19 12:47 Nasal Cannula 3.00 10/22/19 12:44 36.8 89 16 107/57 Nasal Cannula 3.00 100 10/22/19 12:30 36.6 87 16 105/56 89 Room Air 10/22/19 12:00 74 15 119/62 (81) 96 Room Air 10/22/19 12:00 36.6 10/22/19 12:00 100 Nasal Cannula 3.00 10/22/19 11:00 96 14 86/46 (59) 98 Room Air 10/22/19 10:16 96 Room Air 10/22/19 10:00 96 12 82/69 (73) 94 Room Air 10/22/19 09:48 96 10/22/19 08:52 36.0 92 21 90/46 (59) 98 Room Air 10/22/19 06:36 36.0 100 26 85/46 (59) 95 Room Air I & O 10/23/19 07:00 Intake Total 64318 ml Output Total 1585 ml Balance 43213 ml Height & Weight Height: '" Weight: lbs. oz. kg; 88.00 BMI Method: General Appearance: No Apparent Distress, Obese HEENT: Other (facial hair) Neck: Other (short thick with [place] home) Respiratory: Lungs Clear, Normal Breath Sounds, No Accessory Muscle Use, No Respiratory Distress Cardiovascular: Regular Rate, Rhythm, No Gallop, No Murmur Capillary Refill: Less Than 3 Seconds Gastrointestinal: non tender, soft Extremity: Pedal Edema, Other (chronic venous stasis changes with elep) Neurologic/Psychiatric: Alert, Oriented x3, No Motor/Sensory Deficits, Normal Mood/Affect Skin: Pallor Results Lab Laboratory Tests 10/22/19 06:58 10/22/19 22:12 10/22/19 23:00 10/23/19 03:00 10/23/19 03:30 10/23/19 05:20 Assessment/Plan Assessment/Plan Varicose vein bleeding -Surgery following Syncope with severe anemia s/p transfusion -HB is now stable Hypokalemia, hypomag -replace Weakness OLIVER with OHS morbid obesity Will transfer to floor. DEJUAN HAYES DO Oct 23, 2019 05:59
--- NOTE | 2019-10-23 07:44 | Diagnostic Imaging Report ---
INDICATION: Dyspnea. Portable upright AP view of the chest is obtained with comparison made to study of one day earlier. FINDINGS: Again study is limited due to patient body habitus, however no focal infiltrate, pneumothorax or consolidation is identified. Heart size is probably at the upper limits of normal. IMPRESSION: Borderline cardiomegaly without other evidence of acute abnormality or adverse change. Dictated by: Dictated on workstation # [id number]
[2019-10-23] MEDS: PIOGLITAZONE 30MG (ACTOS) TAB PO SCH (07:56)
[2019-10-23] MEDS: GABAPENTIN 300 MG (NEURONTIN) CAP PO SCH ×2 (07:56→19:52)
[2019-10-23] MEDS: metFORMIN 500 MG (GLUCOPHAGE) TAB PO SCH ×2 (07:56→17:01)
[2019-10-23] MEDS: HYDROcodone/APAP 5 MG/325 MG (LORTAB) TAB PO PRN ×4 (07:57→21:09)
--- NOTE | 2019-10-23 08:45 | NUR ---
THIS NURSE CALLED REPORT TO RENATA DUPREE ON FOURTH FLOOR. THIS NURSE NOTIFIED RENATA PT NEEDED DRESSING CHANGES PER WOUND CARE. PT TAKEN DOWN VIA BED.
--- NOTE | 2019-10-23 08:53 | NUR ---
REPORT TAKEN FROM ICU, RN BRITANY AT THIS TIME. THIS RN WILL CONT TO MONITOR THIS PATIENT WHEN SHE ARRIVES TO THIS FLOOR VIA CART. BARIATRIC BED AND RECLINER NEEDED FOR THIS PATIENT.
--- NOTE | 2019-10-23 09:10 | NUR ---
patient to floor at this time.
--- NOTE | 2019-10-23 09:39 | NUR ---
THIS NURSE NOTIFIED RENATA HOST NURSE WILL NOT BE IN TODAY.
[2019-10-23] MEDS ORDERED: GLUC1CAP37 PO (11:16)
[2019-10-23] MEDS ORDERED: CINN500C2 PO (11:16)
[2019-10-23] MEDS ORDERED: OMG1KC PO (11:16)
[2019-10-23] MEDS ORDERED: ASPI-983 PO (11:16)
[2019-10-23] MEDS ORDERED: MULT1TAB69 PO (11:16)
--- NOTE | 2019-10-23 11:21 | NUR ---
SPOKE WITH THE PATIENT ABOUT HER MEDICATIONS. SHE HAS MOST OF HER BOTTLES WITH HER EXCEPT THE DICLOFENAC AND OTC ITEMS. I COMPARED THE BOTTLES WITH THE EXT MED HX. HER GABAPENTIN IS FILLED 400MG QID HOWEVER SHE SATES SHE TAKES IT PRN. USUALLY 2-3 TIMES A DAY. IN ADDITION TO WHAT IS SHOWN ON THE EXT MED HX SHE HAS THE FOLLOWING BOTTLES: 08-22-19 MINOXIDIL 2.5MG BID #180 08-18-19 METFORMIN 850MG BID #180 08-18-19 PIOGLITAZONE 30MG DAILY #90 OTC MEDS: MTV DAILY CINNAMON BID FISH OIL BID GLUCOSAMINE AND CHONDROITIN BID ASPIRIN 81MG DAILY THE MED REC HAS BEEN CONTINUED BUT NOT FREQUENCIES WERE ENTERED ON THE MED REC SO SEVERAL DOSES WERE CONTINUED INCORRECTLY AND FREQUENCIES. I GAVE MED REC CORRECTIONS TO PHARMACIST LESA FOR CLARIFICATION. Addendum: 10/23/19 at 1125 by GIRMA DYE [facility] PATIENT STATES SHE IS NO LONGER TAKING PREDNISONE, DAPSONE OR SANTYL OINTMENT.
--- NOTE | 2019-10-23 11:38 | Physical Therapy Evaluation ---
PT Evaluation-General Medical Diagnosis Admission Date Oct 22, 2019 at 08:20 Medical Diagnosis: bleeding Onset Date: Oct 22, 2019 Therapy Diagnosis Therapy Diagnosis: debility/weakness Precautions Precautions/Isolations: Fall Prevention, Standard Precautions Weight Bear Status Right Lower Extremity: Right Full Weight Bearing Left Lower Extremity: Left Full Weight Bearing Referral Physician: Jacy Reason for Referral: Evaluation/Treatment Medical History Pertinent Medical History: DM, HTN Additional Medical History morbid obesity Current History EMS secondary to spontaneous left LE bleeding Reviewed History: Yes Social History Home: Single Level Current Living Status: Other Family Entry Into Home: Ramp PT Steps Into Home: 3 Prior Prior Level of Function SCALE: Activities may be completed with or without assistive devices. 6-Gxygtghofo-mxymsfm completes the activity by him/herself with no assistance from a helper. 5-Set-up or Clean-up Assistance-helper sets up or cleans up; patient completes activity. [place] assists only prior to or following the activity. 4-Supervision or Touching Assistance-helper provides verbal cues and/or to uching/steadying and/or contact guard assistance as patient completes activity. Assistance may be provided throughout the activity or intermittently. 3-Partial/Moderate Assistance-helper does LESS THAN HALF the effort. [place] lifts, holds or supports trunk or limbs, but provides less than half the effort. 2-Substantial/Maximal Assistance-helper does MORE THAN HALF the effort. [place] lifts or holds trunk or limbs and provides more than half the effort. 7-Rphfhnmww-fdhszs does ALL the effort. Patient does none of the effort to complete the activity. Or, the assistance of 2 or more helpers is required for the patient to complete the activity. If activity was not attempted, code reason: 7-Patient Refused. 9-Not Applicable-not attempted and the patient did not perform the activity before the current illness, exacerbation or injury. 10-Not Attempted due to Environmental Limitations-(lack of equipment, weather restraints, etc.). 88-Not Attempted due to Medical Conditions or Safety Concerns. Bed Mobility: 2 Transfers (B,C,W/C): 4 Gait: 4 Stairs: 2 Indoor Mobility (Ambulation): Needed Some Help Stairs: Needed Some Help Prior Devices Use: Walker PT Evaluation-Current Subjective Patient reluctantly agrees to PT. Mother present and is caregiver at home. Pain Numeric Pain Scale: 10-Worst Possible Pain Location: Left Location Body Site: Calf Pain Description: Pressure, Sharp Objective Patient Orientation: Normal For Age Attachments: Oxygen, IV ROM/Strength ROM Lower Extremities bilateral LE limited due to morbid obesity Strength Lower Extremities 3+/5 grossly bilateral LE Integumentary/Posture Integumentary refer to nursing notes Bladder Incontinence: Leos Cath Posture trunk flexed posture in stand Neuromuscular (Tone, Coordination, Reflexes) grossly intact Sensory Vision: Functional Hearing: Functional Sensation Right Lower Extremit: Impaired Sensation Left Lower Extremity: Impaired Transfers Roll Left to Right (QC): 2 Sit to Lying (QC): 2 Lying to Sitting/Side of Bed(Q: 2 Sit to Stand (QC): 5 Gait Does the Patient Walk?: Yes Mode of Locomotion: Both Anticipated Mode of Locomotion: Both Distance: 5 side steps Gait Assistive Device: FWW Comments/Gait Description functional Balance Sitting Static: Normal Sitting Dynamic: Normal Standing Static: Fair Standing Dynamic: Fair Assessment/Needs 48 y.o. female, will be seen short term by skilled PT to increase functional mobility to improve current LOF to safely return to home with family at maximum LOF. Rehab Potential: Fair Post Rehab Potential-Barriers: morbid obesity PT Marketing Secretary Goals Longterm Goals PT Marketing Secretary Goals Time Frame: Nov 03, 2019 Roll Left & Right (QC): 3 Sit to Lying (QC): 3 Lying-Sitting on Side/Bed(QC): 3 Sit to Stand (QC): 3 Chair/Bay-qk-Bvhgi Xfer(QC): 3 Toilet Transfer (QC): 3 Does the Patient Walk: Yes Walk 10 feet (QC): 3 PT Plan Problem List Problem List: Activity Tolerance, Functional Strength, Safety, Balance, Gait, Transfer, Bed Mobility, ROM Treatment/Plan Treatment Plan: Continue Plan of Care Treatment Plan: Bed Mobility, Education, Functional Activity Concha, Functional Strength, Gait, Safety, Therapeutic Exercise, Transfers Treatment Duration: Nov 03, 2019 Frequency: 5 times per week Estimated Hrs Per Day: .25 hour per day Patient and/or Family Agrees t: Yes Time/GCodes Time In: 1016 Time Out: 1033 Total Billed Treatment Time: 17 Total Billed Treatment 1 visit EVModC 17 min RENATA CORTES PT Oct 23, 2019 11:37
--- NOTE | 2019-10-23 14:48 | NUR ---
"RD ASSESSMENT PMHx: hypercholesterolemia; DM; HTN; OLIVER; morbid obesity PT INTERACTION: Pt was awake and pleasant during nutrition assessment. Pt states current appetite is good and has been for some time. Note avg Po intake of 75% x1d, per chart review. Pt states following a regular diet at home and has no issues with chewing/swallowing food. Pt states no recent issues with n/v/c/d and that her last BM was 10/21. Note pt not currently on bowel regimen per chart review. Pt states no recent wt changes. Note recent 24# wt gain x1mon, per chart review. Note presence of wound on left lower extremity, per chart review. ABNORMAL NUTRITION-RELATED LAB VALUES LOW: K 3.5; phos 1.5; Pro 6.2; HDL 21 HIGH: glu 153; TG 161 Est. kcal needs: 6609-7029 kcal | 25-30 kcal/kg IBW (based on IBW of 56.8) Est. Pro needs: 68-80 g Pro | 1.2-1.4 g Pro/kg IBW (based on IBW of 56.8) PES STATEMENT: Inadequate protein intake (NI-5.6.1) related to increased protein needs as evidenced by presence of wounds (left lower extremity) INTERVENTION: Continue with current diet order of CHO 60g/m 3snack diet. Add Ensure HP (vary) to meals TID. Provides 160 kcal and 16 g Pro per serving for perceived benefit to wound healing. Will continue to follow and reassess as pt needs and status change. MONITOR/EVALUATE: PO Intake; Plan of Care; Hydration Status; Weight Status; Lab Values Hero Parekh, MS, RD, LD"
--- NOTE | 2019-10-23 16:40 | Progress Note - Surgery ---
Subjective Time Seen by a Provider: 16:11 Subjective/Events-last exam Pt seen and examined, no new complaints. Denies any bleeding from her leg. Review of Systems General: No Chills, No Night Sweats Pulmonary: No Dyspnea, No Cough Cardiovascular: No: Chest Pain, Palpitations Objective Exam Vital Signs Date Time Temp Pulse Resp B/P (MAP) Pulse Ox O2 Delivery O2 Flow Rate FiO2 10/23/19 12:00 36.7 83 20 114/56 (75) 98 Nasal Cannula 3.00 10/23/19 11:00 36.7 83 20 114/56 (75) 98 Nasal Cannula 3.00 10/23/19 08:00 100 Nasal Cannula 3.00 10/23/19 08:00 93 15 130/73 (92) 99 Nasal Cannula 3.00 10/23/19 08:00 36.6 10/23/19 07:00 90 10/23/19 06:00 89 18 123/64 (83) 97 Nasal Cannula 3.00 10/23/19 05:00 101 20 109/53 (71) 93 Nasal Cannula 3.00 10/23/19 04:00 84 8 110/59 (76) 94 Nasal Cannula 3.00 10/23/19 03:20 100 Nasal Cannula 3.00 10/23/19 03:20 36.2 10/23/19 03:00 87 12 117/78 (91) 96 Nasal Cannula 3.00 10/23/19 02:21 36.0 85 124/58 Nasal Cannula 3.00 10/23/19 02:00 86 34 117/63 (81) 100 Nasal Cannula 3.00 10/23/19 01:00 87 11 104/51 (68) 100 Nasal Cannula 3.00 10/23/19 00:46 99 10/23/19 00:10 36.3 92 12 127/70 Nasal Cannula 3.00 10/23/19 00:08 36.3 89 12 127/70 100 Nasal Cannula 3.00 10/23/19 00:00 87 10 121/76 (91) 100 Nasal Cannula 3.00 10/22/19 23:54 36.1 84 10 126/69 Nasal Cannula 3.00 10/22/19 23:11 36.0 10/22/19 23:04 100 Nasal Cannula 3.00 10/22/19 23:00 93 15 128/67 (87) 97 Nasal Cannula 3.00 10/22/19 22:00 78 15 113/72 (86) 99 Nasal Cannula 3.00 10/22/19 21:00 86 8 109/47 (67) 100 Nasal Cannula 3.00 10/22/19 20:07 36.2 86 12 100 Nasal Cannula 3.00 10/22/19 20:00 86 26 123/64 (83) 100 Nasal Cannula 3.00 10/22/19 20:00 100 Nasal Cannula 3.00 10/22/19 20:00 36.0 10/22/19 19:00 89 7 113/54 (73) 100 Nasal Cannula 3.00 10/22/19 18:40 87 10/22/19 18:00 85 17 125/63 (83) 98 Nasal Cannula 3.00 10/22/19 17:00 37.0 86 11 121/56 100 Nasal Cannula 3.00 10/22/19 17:00 81 9 121/56 (77) 100 Nasal Cannula 3.00 10/22/19 16:40 37.0 80 14 117/72 100 Nasal Cannula 3.00 I & O 10/23/19 07:00 Intake Total 43888 ml Output Total 1585 ml Balance 45757 ml Capillary Refill : Less Than 3 Seconds General Appearance: No Apparent Distress, Obese HEENT: Other (facial hair) Neck: Other (short thick with [place]) Respiratory: Lungs Clear, Normal Breath Sounds, No Accessory Muscle Use, No Respiratory Distress Cardiovascular: Regular Rate, Rhythm, No Gallop, No Murmur Gastrointestinal: non tender, soft Extremity: Pedal Edema, Other (chronic venous stasis changes) Neurologic/Psychiatric: Alert, Oriented x3, No Motor/Sensory Deficits, Normal Mood/Affect Skin: Pallor Results Lab Laboratory Tests 10/22/19 20:05: Glucometer 138H 10/22/19 22:12: Hemoglobin 6.9*L, Hematocrit 22L 10/22/19 23:00: Hemoglobin 6.9*L, Hematocrit 22L 10/23/19 03:00: Sodium Level 142, Potassium Level 3.5L, Chloride Level 104, Carbon Dioxide Level 26, Anion Gap 12, Blood Urea Nitrogen 13, Creatinine 1.08, Estimat Glomerular Filtration Rate 54, BUN/Creatinine Ratio 12, Glucose Level 153H, Calcium Level 8.8, Corrected Calcium 9.4, Phosphorus Level 3.5, Magnesium Level 1.5L, Total Bilirubin 0.5, Aspartate Amino Transf (AST/SGOT) 30, Alanine Aminotransferase (ALT/SGPT) 24, Alkaline Phosphatase 44, Total Protein 6.2L, Albumin 3.3, Triglycerides Level 161H, Cholesterol Level 91, LDL Cholesterol Direct 44, VLDL Cholesterol 32, HDL Cholesterol 21L 10/23/19 03:30: White Blood Count 10.3, Red Blood Count 2.63L, Hemoglobin 7.4L, Hematocrit 23L, Mean Corpuscular Volume 88, Mean Corpuscular Hemoglobin 28, Mean Corpuscular Hemoglobin Concent 32, Red Cell Distribution Width 17.6H, Platelet Count 311, Mean Platelet Volume 11.1H, Neutrophils (%) (Auto) 72, Lymphocytes (%) (Auto) 17, Monocytes (%) (Auto) 9, Eosinophils (%) (Auto) 2, Basophils (%) (Auto) 0, Neutrophils # (Auto) 7.4, Lymphocytes # (Auto) 1.7, Monocytes # (Auto) 0.9, Eosinophils # (Auto) 0.2, Basophils # (Auto) 0.0 10/23/19 05:20: Hemoglobin 7.4L, Hematocrit 24L 10/23/19 11:18: Glucometer 178H 10/23/19 11:31: Lab Scanned Report Transfusion Reaction Form Microbiology 10/22/19 MRSA Screen - Final, Complete MRSA not isolated Assessment/Plan Assessment/Plan Assessment/Plan Anemia Morbid Obesity Varicose veins of Lower Legs with suspected reflux of blood Will hold off on EGD and colonoscopy unless FOBT is positive. Pt needs ablation of her Varicose veins; it is the only thing that will allow her ulcers in both LE to heal and at the same time should prevent further bleeding. Unfortunately she cannot get that done here. If pt bleeds again would just apply pressure. Try to use non-adherent dressing, so that clot is not ripped off and then vessel starts bleeding again. Clinical Quality Measures DVT/VTE Risk/Contraindication: Risk Factor Score Per Nursin RFS Level Per Nursing on Admit: 3=High CHARLIE LORENZO DO Oct 23, 2019 16:40
--- NOTE | 2019-10-23 19:33 | Progress Note ---
Subjective Subjective/Events-last exam Patient in bed this AM. States that she just got up with PT. Denies any further bleeding. Mild pain in LE bilaterally. Review of Systems Pulmonary: Dyspnea (improving) Cardiovascular: No: Chest Pain, Palpitations Gastrointestinal: No: Nausea, Vomiting, Abdominal Pain, Diarrhea, Constipation Neurological: Weakness Objective Exam Last Set of Vital Signs Vital Signs Date Time Temp Pulse Resp B/P (MAP) Pulse Ox O2 Delivery O2 Flow Rate FiO2 10/23/19 16:00 36.9 85 18 140/66 (90) 96 Room Air 10/23/19 12:00 3.00 10/22/19 12:44 100 Capillary Refill : Less Than 3 Seconds I&O Intake and Output 10/23/19 00:00 Intake Total 00193 ml Output Total 910 ml Balance 66478 ml Intake Oral 1000 ml IV Total 67833 ml Output Urine Total 910 ml Daily Weight Change No General: Alert, Oriented X3, No Acute Distress, Other (morbid obesity) Lungs: Clear to Auscultation, Normal Air Movement Heart: Regular Rate, No Murmurs Abdomen: Normal Bowel Sounds, Soft, No Tenderness, No Masses Extremities: Other (chronic venous statis changes in bilateral LE, no active bleeding at this time) Neuro: Normal Speech, Sensation Intact, Cranial Nerves 3-12 NL Psych/Mental Status: Mental Status NL, Mood NL Results/Procedures Lab Laboratory Tests 10/22/19 20:05: Glucometer 138H 10/22/19 22:12: Hemoglobin 6.9*L, Hematocrit 22L 10/22/19 23:00: Hemoglobin 6.9*L, Hematocrit 22L 10/23/19 03:00: Sodium Level 142, Potassium Level 3.5L, Chloride Level 104, Carbon Dioxide Level 26, Anion Gap 12, Blood Urea Nitrogen 13, Creatinine 1.08, Estimat Glomerular Filtration Rate 54, BUN/Creatinine Ratio 12, Glucose Level 153H, Calcium Level 8.8, Corrected Calcium 9.4, Phosphorus Level 3.5, Magnesium Level 1.5L, Total Bilirubin 0.5, Aspartate Amino Transf (AST/SGOT) 30, Alanine Aminotransferase (ALT/SGPT) 24, Alkaline Phosphatase 44, Total Protein 6.2L, Albumin 3.3, Triglycerides Level 161H, Cholesterol Level 91, LDL Cholesterol Direct 44, VLDL Cholesterol 32, HDL Cholesterol 21L 10/23/19 03:30: White Blood Count 10.3, Red Blood Count 2.63L, Hemoglobin 7.4L, Hematocrit 23L, Mean Corpuscular Volume 88, Mean Corpuscular Hemoglobin 28, Mean Corpuscular Hemoglobin Concent 32, Red Cell Distribution Width 17.6H, Platelet Count 311, Mean Platelet Volume 11.1H, Neutrophils (%) (Auto) 72, Lymphocytes (%) (Auto) 17, Monocytes (%) (Auto) 9, Eosinophils (%) (Auto) 2, Basophils (%) (Auto) 0, Neutrophils # (Auto) 7.4, Lymphocytes # (Auto) 1.7, Monocytes # (Auto) 0.9, Eosinophils # (Auto) 0.2, Basophils # (Auto) 0.0 10/23/19 05:20: Hemoglobin 7.4L, Hematocrit 24L 10/23/19 11:18: Glucometer 178H 10/23/19 11:31: Lab Scanned Report Transfusion Reaction Form 10/23/19 16:42: Glucometer 142H Microbiology 10/22/19 MRSA Screen - Final, Complete MRSA not isolated 10/22/19 Blood Culture - Preliminary, Resulted No growth Assessment/Plan Assessment/Plan (1) Varicose vein of leg Status: Acute Assessment & Plan: 10/23: Acute bleeding, will need outpatient referral to [facility] Qualifiers: Qualified Codes: I83.92 - Asymptomatic varicose veins of left lower extremity (2) Anemia due to acute blood loss Status: Acute Assessment & Plan: 10/23: Received pRBCs, will get iron studies (3) HTN (hypertension) Status: Chronic Assessment & Plan: 10/23: Continue home meds Qualifiers: Qualified Codes: I10 - Essential (primary) hypertension (4) UTI (urinary tract infection) Status: Acute Assessment & Plan: 10/23: Culture pending, continue antibiotics Qualifiers: Qualified Codes: N30.00 - Acute cystitis without hematuria (5) Morbid obesity with BMI of 70 and over, adult Status: Chronic Clinical Quality Measures DVT/VTE Risk/Contraindication: Risk Factor Score Per Nursin RFS Level Per Nursing on Admit: 3=High DONNA EUBANKS MD Oct 23, 2019 19:33
[2019-10-24] VITALS (7 sets, daily range): BP systolic 124–172; BP diastolic 60–86
[2019-10-24 05:54] LABS: BASOPHILS % (AUTO) 0 % (0-10); EOSINOPHILS # (AUTO) 0.3 10^3/uL (0.0-0.3); EOSINOPHILS % (AUTO) 3 % (0-10); HEMATOCRIT 24 % (35-52); HEMOGLOBIN 7.3 G/DL (11.5-16.0); LYMPHOCYTES # (AUTO) 1.8 X 10^3 (1.0-4.0); LYMPHOCYTES % (AUTO) 18 % (12-44); MEAN CORPUSCULAR HEMOGLOBIN 27 PG (25-34); MEAN CORPUSCULAR HGB CONC 30 G/DL (32-36); MEAN CORPUSCULAR VOLUME 90 FL (80-99); MEAN PLATELET VOLUME 10.7 FL (7.4-10.4); MONOCYTES % (AUTO) 10 % (0-12); NEUTROPHILS # (AUTO) 7.2 X 10^3 (1.8-7.8); NEUTROPHILS % (AUTO) 69 % (42-75); PLATELET COUNT 349 10^3/uL (130-400); RED CELL DISTRIBUTION WIDTH 18.5 % (10.0-14.5); WHITE BLOOD COUNT 10.4 10^3/uL (4.3-11.0)
[2019-10-24 06:36] LABS: BUN/CREATININE RATIO 8; CALCIUM 9.1 MG/DL (8.5-10.1); CARBON DIOXIDE 26 MMOL/L (21-32); CHLORIDE 104 MMOL/L (98-107); CREATININE SERUM 0.84 MG/DL (0.60-1.30); GFR ESTIMATED > 60; GLUCOSE 127 MG/DL (70-105); MAGNESIUM 1.6 MG/DL (1.6-2.4); POTASSIUM 3.7 MMOL/L (3.6-5.0); SODIUM 141 MMOL/L (135-145)
[2019-10-24] MEDS: MAGNESIUM 1 GM/100 ML IVPB 100 ML IV SCH ×3 (06:55→08:34)
[2019-10-24] MEDS: POTASSIUM CL 10MEQ/50ML IVPB 50 ML IV SCH (06:57)
[2019-10-24] MEDS: KCL 20 MEQ TAB (K-DUR) PO SCH (06:57)
[2019-10-24] MEDS: NS IV 1000 ML 1,000 ML IV SCH (07:23)
--- NOTE | 2019-10-24 07:41 | Pulmonary Progress Note ---
Subjective Time Seen by a Provider: 07:40 Sepsis Event Evaluation Height, Weight, BMI Height: '" Weight: lbs. oz. kg; 88.00 BMI Method: Exam Exam Vital Signs Date Time Temp Pulse Resp B/P (MAP) Pulse Ox O2 Delivery O2 Flow Rate FiO2 10/24/19 07:00 92 10/24/19 06:05 3.00 10/24/19 04:00 36.2 89 20 134/85 (101) 96 NIV CPAP 10/24/19 01:24 NIV CPAP 3.00 10/24/19 01:00 82 10/24/19 00:25 36.1 86 21 172/86 (114) NIV CPAP 10/23/19 22:30 Nasal Cannula 3.00 10/23/19 22:00 37.4 98 18 118/73 (88) 90 Nasal Cannula 3.00 10/23/19 21:59 37.4 98 18 118/73 (88) 90 Nasal Cannula 3.00 10/23/19 20:00 37.4 98 18 118/73 (88) 90 Nasal Cannula 3.00 10/23/19 19:50 Nasal Cannula 3.00 10/23/19 19:00 89 10/23/19 16:00 36.9 85 18 140/66 (90) 96 Room Air 10/23/19 12:00 36.7 83 20 114/56 (75) 98 Nasal Cannula 3.00 10/23/19 11:00 36.7 83 20 114/56 (75) 98 Nasal Cannula 3.00 10/23/19 08:00 100 Nasal Cannula 3.00 10/23/19 08:00 93 15 130/73 (92) 99 Nasal Cannula 3.00 10/23/19 08:00 36.6 I & O 10/24/19 07:00 Intake Total 52502 ml Output Total 2625 ml Balance 8380 ml Height & Weight Height: '" Weight: lbs. oz. kg; 88.00 BMI Method: General Appearance: No Apparent Distress, Obese HEENT: Other (facial hair) Neck: Other (short thick with [place] home) Respiratory: Lungs Clear, Normal Breath Sounds, No Accessory Muscle Use, No Respiratory Distress Cardiovascular: Regular Rate, Rhythm, No Gallop, No Murmur Capillary Refill: Less Than 3 Seconds Gastrointestinal: non tender, soft Extremity: Pedal Edema, Other (chronic venous stasis changes) Neurologic/Psychiatric: Alert, Oriented x3, No Motor/Sensory Deficits, Normal Mood/Affect Skin: Pallor Results Lab Laboratory Tests 10/22/19 22:12 10/22/19 23:00 10/23/19 03:00 10/23/19 03:30 10/23/19 05:20 10/24/19 05:24 Assessment/Plan Assessment/Plan Varicose vein bleeding -Surgery following Syncope with severe anemia s/p transfusion -HB is now stable Weakness OLIVER with [facility] morbid obesity Will transfer to floor. DEJUAN HAYES DO Oct 24, 2019 07:41
[2019-10-24] MEDS: metFORMIN 500 MG (GLUCOPHAGE) TAB PO SCH ×2 (08:33→17:47)
[2019-10-24] MEDS: PIOGLITAZONE 30MG (ACTOS) TAB PO SCH (08:33)
[2019-10-24] MEDS: GABAPENTIN 300 MG (NEURONTIN) CAP PO SCH ×2 (08:33→21:00)
--- NOTE | 2019-10-24 08:35 | Progress Note - Surgery ---
Subjective Date Seen by a Provider: Oct 24, 2019 Time Seen by a Provider: 07:56 Subjective/Events-last exam Patient seen and examined this morning. She states she is having back pain and pain in her left leg this morning Review of Systems General: No Chills, No Night Sweats HEENT: No Head Aches Pulmonary: No Dyspnea, No Cough Cardiovascular: No: Chest Pain, Palpitations Gastrointestinal: No: Nausea, Vomiting, Abdominal Pain Musculoskeletal: back pain, leg pain (left) Objective Exam Vital Signs Date Time Temp Pulse Resp B/P (MAP) Pulse Ox O2 Delivery O2 Flow Rate FiO2 10/24/19 07:00 92 10/24/19 06:05 3.00 10/24/19 04:00 36.2 89 20 134/85 (101) 96 NIV CPAP 10/24/19 01:24 NIV CPAP 3.00 10/24/19 01:00 82 10/24/19 00:25 36.1 86 21 172/86 (114) NIV CPAP 10/23/19 22:30 Nasal Cannula 3.00 10/23/19 22:00 37.4 98 18 118/73 (88) 90 Nasal Cannula 3.00 10/23/19 21:59 37.4 98 18 118/73 (88) 90 Nasal Cannula 3.00 10/23/19 20:00 37.4 98 18 118/73 (88) 90 Nasal Cannula 3.00 10/23/19 19:50 Nasal Cannula 3.00 10/23/19 19:00 89 10/23/19 16:00 36.9 85 18 140/66 (90) 96 Room Air 10/23/19 12:00 36.7 83 20 114/56 (75) 98 Nasal Cannula 3.00 10/23/19 11:00 36.7 83 20 114/56 (75) 98 Nasal Cannula 3.00 I & O 10/24/19 07:00 Intake Total 23609 ml Output Total 2625 ml Balance 8380 ml Capillary Refill : Less Than 3 Seconds General Appearance: No Apparent Distress, Obese HEENT: PERRL/EOMI Respiratory: Lungs Clear, No Accessory Muscle Use, No Respiratory Distress Cardiovascular: Regular Rate, Rhythm, No Murmur Peripheral Pulses: 2+ Radial Pulses (R), 2+ Radial Pulses (L) Gastrointestinal: non tender, soft Extremity: Pedal Edema, Other (chronic venous stasis changes) Neurologic/Psychiatric: Alert, Oriented x3 Skin: Warm/Dry, Other (dressing in place on LLE, small amount of dried drainage) Results Lab Laboratory Tests 10/23/19 11:18: Glucometer 178H 10/23/19 11:31: Lab Scanned Report Transfusion Reaction Form 10/23/19 16:42: Glucometer 142H 10/23/19 20:58: Glucometer 154H 10/24/19 05:24: White Blood Count 10.4, Red Blood Count 2.70L, Hemoglobin 7.3L, Hematocrit 24L, Mean Corpuscular Volume 90, Mean Corpuscular Hemoglobin 27, Mean Corpuscular Hemoglobin Concent 30L, Red Cell Distribution Width 18.5H, Platelet Count 349, Mean Platelet Volume 10.7H, Neutrophils (%) (Auto) 69, Lymphocytes (%) (Auto) 18, Monocytes (%) (Auto) 10, Eosinophils (%) (Auto) 3, Basophils (%) (Auto) 0, Neutrophils # (Auto) 7.2, Lymphocytes # (Auto) 1.8, Monocytes # (Auto) 1.0, Eosinophils # (Auto) 0.3, Basophils # (Auto) 0.0, Sodium Level 141, Potassium Level 3.7, Chloride Level 104, Carbon Dioxide Level 26, Anion Gap 11, Blood Urea Nitrogen 7, Creatinine 0.84, Estimat Glomerular Filtration Rate > 60, BUN/Creatinine Ratio 8, Glucose Level 127H, Calcium Level 9.1, Phosphorus Level 3.0, Magnesium Level 1.6 10/24/19 05:51: Glucometer 135H Microbiology 10/22/19 MRSA Screen - Final, Complete MRSA not isolated 10/22/19 Blood Culture - Preliminary, Resulted No growth Assessment/Plan Assessment/Plan Assessment/Plan Assessment: -Anemia -Morbid Obesity -Varicose veins Plan: continue current care. Encourage increased activity as tolerated. Clinical Quality Measures DVT/VTE Risk/Contraindication: Risk Factor Score Per Nursin RFS Level Per Nursing on Admit: 3=High DAVIAN YU,MED STUDENT Oct 24, 2019 08:35
[2019-10-24] MEDS: HYDROcodone/APAP 5 MG/325 MG (LORTAB) TAB PO PRN ×3 (09:33→21:01)
--- NOTE | 2019-10-24 12:05 | Physical Therapy Daily Note ---
PT Daily Note-Current Subjective Patient is agreeable to therapy. Patient would like to move to recliner. Mental Status Patient Orientation: Person, Place, Time, Situation Attachments: Oxygen, IV Transfers SCALE: Activities may be completed with or without assistive devices. 5-[place]dog[place]djg[place] completes the activity by him/herself with no assistance from a helper. 5-Set-up or Clean-up Assistance-helper sets up or cleans up; patient completes activity. [place] assists only prior to or following the activity. 4-Supervision or Touching Assistance-helper provides verbal cues and/or touching/steadying and/or contact guard assistance as patient completes activity. Assistance may be provided throughout the activity or intermittently. 3-Partial/Moderate Assistance-helper does LESS THAN HALF the effort. [place] lifts, holds or supports trunk or limbs, but provides less than half the effort. 2-Substantial/Maximal Assistance-helper does MORE THAN HALF the effort. [place] lifts or holds trunk or limbs and provides more than half the effort. 9-Ctbruowvx-iduojt does ALL the effort. Patient does none of the effort to complete the activity. Or, the assistance of 2 or more helpers is required for the patient to complete the activity. If activity was not attempted, code reason: 7-Patient Refused. 9-Not Applicable-not attempted and the patient did not perform the activity before the current illness, exacerbation or injury. 10-Not Attempted due to Environmental Limitations-(lack of equipment, weather restraints, etc.). 88-Not Attempted due to Medical Conditions or Safety Concerns. Sit to Stand (QC): 4 Chair/Nzg-wg-Bvoud Xfer(QC): 4 Weight Bearing Right Lower Extremity: Right Full Weight Bearing Left Lower Extremity: Left Full Weight Bearing Gait Training Does the Patient Walk?: Yes Distance: 10' Walk 10 feet (QC): 4 Gait Persons Needed: 1 Gait Assistive Device: FWW CGA for safety. Exercises Seated Therapy Exercises: Ankle pumps (15 RLE), Long arc quads (15 BLE), Hip flexion (15 BLE (limited ROM)) Assessment Patient was only willing to walk within room from chair to recliner. Patient's mother was present to put dressing on patient heel before ambulating. Patient was steady during ambulation but fatigued quickly. PT [facility] Goals [facility] Goals PT [facility] Goals Time Frame: Nov 03, 2019 Roll Left & Right (QC): 3 Sit to Lying (QC): 3 Lying-Sitting on Side/Bed(QC): 3 Sit to Stand (QC): 3 Chair/Uxm-kq-Eybxt Xfer(QC): 3 Toilet Transfer (QC): 3 Does the Patient Walk: Yes Walk 10 feet (QC): 3 PT Plan Problem List Problem List: Activity Tolerance, Functional Strength, Safety, Balance, Gait, Transfer, Bed Mobility, ROM Treatment/Plan Treatment Plan: Continue Plan of Care Treatment Plan: Bed Mobility, Education, Functional Activity Concha, Functional Strength, Gait, Safety, Therapeutic Exercise, Transfers Treatment Duration: Nov 03, 2019 Frequency: 5 times per week Estimated Hrs Per Day: .25 hour per day Patient and/or Family Agrees t: Yes Safety Risks/Education Patient Education: Gait Training, Transfer Techniques Teaching Recipient: Patient, Family Teaching Methods: Discussion Response to Teaching: Reinforcement Needed Time/GCodes Time In: 1101 Time Out: 1121 Total Billed Treatment Time: 20 Total Billed Treatment 1 visit FA (20 minutes) RENATA CORTES PT Oct 24, 2019 12:05
--- NOTE | 2019-10-24 16:10 | NUR ---
CM/SS: Visited with pt as to discharge plan Plan: Pt to be discharged to home with her mother providing care Summary: Pt reports that she is frustrated as to the dietary department not getting her things that she wants. She does express some concern about finances and financial services notified to speak with pt. Pt reports having her mother spend the night with her in the room. This worker will follow up on tomorrow.
[2019-10-24] MEDS ORDERED: IRON SUCROSE 200 MG/10 ML (VENOFER) VIAL IV ONE (20:00)
--- NOTE | 2019-10-24 20:08 | Progress Note ---
Subjective Subjective/Events-last exam Patient states that she is feeling better this AM. Left leg is hurting. She is getting a bed bath this AM. Review of Systems Pulmonary: Dyspnea Cardiovascular: No: Chest Pain, Palpitations Gastrointestinal: No: Nausea, Vomiting, Diarrhea, Constipation Musculoskeletal: leg pain (Left>right) Neurological: Weakness Objective Exam Last Set of Vital Signs Vital Signs Date Time Temp Pulse Resp B/P (MAP) Pulse Ox O2 Delivery O2 Flow Rate FiO2 10/24/19 16:00 36.6 80 16 124/60 (81) 100 Nasal Cannula 3.00 10/22/19 12:44 100 Capillary Refill : Less Than 3 SecondsLess Than 3 Seconds I&O Intake and Output 10/24/19 00:00 Intake Total 31886 ml Output Total 2800 ml Balance 81186 ml Intake Oral 1780 ml IV Total 15194 ml Output Urine Total 2800 ml General: Alert, Oriented X3, Cooperative, Other (Morbidly Obese) Lungs: Clear to Auscultation, Normal Air Movement Heart: Regular Rate, No Murmurs Abdomen: Normal Bowel Sounds, Soft, No Tenderness, No Masses Extremities: Other (Chronic venous statis changes bilaterally, multiple chronic leg wounds ) Neuro: Normal Speech, Sensation Intact, Cranial Nerves 3-12 NL Results/Procedures Lab Laboratory Tests 10/23/19 20:58: Glucometer 154H 10/24/19 05:24: White Blood Count 10.4, Red Blood Count 2.70L, Hemoglobin 7.3L, Hematocrit 24L, Mean Corpuscular Volume 90, Mean Corpuscular Hemoglobin 27, Mean Corpuscular Hemoglobin Concent 30L, Red Cell Distribution Width 18.5H, Platelet Count 349, M abisai Platelet Volume 10.7H, Neutrophils (%) (Auto) 69, Lymphocytes (%) (Auto) 18, Monocytes (%) (Auto) 10, Eosinophils (%) (Auto) 3, Basophils (%) (Auto) 0, Neutrophils # (Auto) 7.2, Lymphocytes # (Auto) 1.8, Monocytes # (Auto) 1.0, Eosinophils # (Auto) 0.3, Basophils # (Auto) 0.0, Sodium Level 141, Potassium Level 3.7, Chloride Level 104, Carbon Dioxide Level 26, Anion Gap 11, Blood Urea Nitrogen 7, Creatinine 0.84, Estimat Glomerular Filtration Rate > 60, BUN/Creatinine Ratio 8, Glucose Level 127H, Calcium Level 9.1, Phosphorus Level 3.0, Magnesium Level 1.6 10/24/19 05:51: Glucometer 135H 10/24/19 11:51: Glucometer 170H 10/24/19 16:31: Glucometer 153H Microbiology 10/22/19 MRSA Screen - Final, Complete MRSA not isolated 10/22/19 Blood Culture - Preliminary, Resulted No growth Assessment/Plan Assessment/Plan (1) Varicose vein of leg Status: Acute Assessment & Plan: 10/23: Acute bleeding, will need outpatient referral to [facility] 10/24: No further bleeding, discussed the need to focus on some weight loss and treatment for the venous stasis Qualifiers: Qualified Codes: I83.92 - Asymptomatic varicose veins of left lower extremity (2) Anemia due to acute blood loss Status: Acute Assessment & Plan: 10/23: Received pRBCs, will get iron studies 10/24: Dose of Venofer given today (3) HTN (hypertension) Status: Chronic Assessment & Plan: 10/23: Continue home meds Qualifiers: Qualified Codes: I10 - Essential (primary) hypertension (4) UTI (urinary tract infection) Status: Acute Assessment & Plan: 10/23: Culture pending, continue antibiotics Qualifiers: Qualified Codes: N30.00 - Acute cystitis without hematuria (5) Morbid obesity with BMI of 70 and over, adult Status: Chronic Clinical Quality Measures DVT/VTE Risk/Contraindication: Risk Factor Score Per Nursin RFS Level Per Nursing on Admit: 3=High DONNA EUBANKS MD Oct 24, 2019 20:08
[2019-10-25] MEDS: HYDROcodone/APAP 5 MG/325 MG (LORTAB) TAB PO PRN ×2 (02:44→06:52)
[2019-10-25 03:53] VITALS: BP 144/72
[2019-10-25 04:56] LABS: BASOPHILS % (AUTO) 0 % (0-10); EOSINOPHILS # (AUTO) 0.2 10^3/uL (0.0-0.3); EOSINOPHILS % (AUTO) 2 % (0-10); HEMATOCRIT 24 % (35-52); HEMOGLOBIN 7.1 G/DL (11.5-16.0); LYMPHOCYTES # (AUTO) 1.4 X 10^3 (1.0-4.0); LYMPHOCYTES % (AUTO) 15 % (12-44); MEAN CORPUSCULAR HEMOGLOBIN 28 PG (25-34); MEAN CORPUSCULAR HGB CONC 30 G/DL (32-36); MEAN CORPUSCULAR VOLUME 91 FL (80-99); MEAN PLATELET VOLUME 10.4 FL (7.4-10.4); MONOCYTES # (AUTO) 0.9 X 10^3 (0.0-1.0); MONOCYTES % (AUTO) 9 % (0-12); NEUTROPHILS % (AUTO) 74 % (42-75); PLATELET COUNT 342 10^3/uL (130-400); RED CELL DISTRIBUTION WIDTH 17.7 % (10.0-14.5); WHITE BLOOD COUNT 9.4 10^3/uL (4.3-11.0)
[2019-10-25 05:11] LABS: CALCIUM 9.2 MG/DL (8.5-10.1); CREATININE SERUM 0.99 MG/DL (0.60-1.30); MAGNESIUM 1.8 MG/DL (1.6-2.4); PHOSPHORUS 2.8 MG/DL (2.3-4.7); POTASSIUM 3.9 MMOL/L (3.6-5.0)
[2019-10-25] MEDS: KCL 20 MEQ TAB (K-DUR) PO SCH (05:32)
[2019-10-25] MEDS: metFORMIN 500 MG (GLUCOPHAGE) TAB PO SCH (06:52)
[2019-10-25 08:00] VITALS: BP 155/70
[2019-10-25] MEDS: PIOGLITAZONE 30MG (ACTOS) TAB PO SCH (09:33)
[2019-10-25] MEDS: GABAPENTIN 300 MG (NEURONTIN) CAP PO SCH (09:34)
--- NOTE | 2019-10-25 10:55 | Physical Therapy Daily Note ---
PT Daily Note-Current Subjective Patient is unwilling to get up from bed at this time but is agreeable to exercises in bed. Patient reports 5/10 pain in LLE wound. Pain Numeric Pain Scale: 5-Moderate Pain Location: Left Location Body Site: Calf Pain Description: Dull Appearance Patient in bed with bedside table and call light within reach. Mother present in room. Mental Status Patient Orientation: Person, Place, Time, Situation Transfers SCALE: Activities may be completed with or without assistive devices. 0-Uvwujzzzhs-lcrnzky completes the activity by him/herself with no assistance from a helper. 5-Set-up or Clean-up Assistance-helper sets up or cleans up; patient completes activity. [place] assists only prior to or following the activity. 4-Supervision or Touching Assistance-helper provides verbal cues and/or touching/steadying and/or contact guard assistance as patient completes activi ty. Assistance may be provided throughout the activity or intermittently. 3-Partial/Moderate Assistance-helper does LESS THAN HALF the effort. [place] lifts, holds or supports trunk or limbs, but provides less than half the effort. 2-Substantial/Maximal Assistance-helper does MORE THAN HALF the effort. [place] lifts or holds trunk or limbs and provides more than half the effort. 2-Bgykiytqw-fbzrnc does ALL the effort. Patient does none of the effort to complete the activity. Or, the assistance of 2 or more helpers is required for the patient to complete the activity. If activity was not attempted, code reason: 7-Patient Refused. 9-Not Applicable-not attempted and the patient did not perform the activity before the current illness, exacerbation or injury. 10-Not Attempted due to Environmental Limitations-(lack of equipment, weather restraints, etc.). 88-Not Attempted due to Medical Conditions or Safety Concerns. Weight Bearing Right Lower Extremity: Right Full Weight Bearing Left Lower Extremity: Left Full Weight Bearing Gait Training Does the Patient Walk?: No and Walking Goal IS indicated Wheelchair Training Does the Pt Use a Wheelchair?: No Exercises Supine Ex: Ankle pumps, Quad Set, Glut sets, Heel Slides Supine Reps: 15 Patient refused to move LLE due to pain and performed exercises on RLE only. Treatments Exercises. Assessment Current Status: Poor Progress Patient stated she was up earlier this morning to go to the bathroom and doing that increased her pain and she is unwilling to get out of bed at this time because of that. Patient performs exercises only on the RLE and not on LLE due to pain. Patient had limited ROM due to obesity. PT Aircraft Machinist Goals Senior Living Goals PT Senior Living Goals Time Frame: Nov 03, 2019 Roll Left & Right (QC): 3 Sit to Lying (QC): 3 Lying-Sitting on Side/Bed(QC): 3 Sit to Stand (QC): 3 Chair/Uot-ab-Ktgmn Xfer(QC): 3 Toilet Transfer (QC): 3 Does the Patient Walk: Yes Walk 10 feet (QC): 3 PT Plan Problem List Problem List: Activity Tolerance, Functional Strength, Safety, Balance, Gait, Transfer, Bed Mobility, ROM Treatment/Plan Treatment Plan: Continue Plan of Care Treatment Plan: Bed Mobility, Education, Functional Activity Concha, Functional Strength, Gait, Safety, Therapeutic Exercise, Transfers Treatment Duration: Nov 03, 2019 Frequency: 5 times per week Estimated Hrs Per Day: .25 hour per day Patient and/or Family Agrees t: Yes Safety Risks/Education Patient Education: Correct Positioning Teaching Recipient: Patient, Family Teaching Methods: Discussion Response to Teaching: Reinforcement Needed Time/GCodes Time In: 948 Time Out: 957 Total Billed Treatment Time: 9 Total Billed Treatment 1 visit EX (9 minutes) MARICEL PITTMAN PT Oct 25, 2019 10:54
--- NOTE | 2019-10-25 11:27 | Discharge Summary ---
Diagnosis/Chief Complaint Date of Admission Oct 22, 2019 at 08:20 Date of Discharge 10/25/2019 Discharge Diagnosis Problems/Diagnosis: (1) Varicose vein of leg Assessment & Plan: 10/23: Acute bleeding, will need outpatient referral to [facility] 10/24: No further bleeding, discussed the need to focus on some weight loss and treatment for the venous stasis Qualifiers: Qualified Codes: I83.92 - Asymptomatic varicose veins of left lower extremity Status: Acute (2) Anemia due to acute blood loss Assessment & Plan: 10/23: Received pRBCs, will get iron studies 10/24: Dose of Venofer given today Status: Acute (3) HTN (hypertension) Assessment & Plan: 10/23: Continue home meds Qualifiers: Qualified Codes: I10 - Essential (primary) hypertension Status: Chronic (4) UTI (urinary tract infection) Assessment & Plan: 10/23: Culture pending, continue antibiotics Qualifiers: Qualified Codes: N30.00 - Acute cystitis without hematuria Status: Acute (5) Morbid obesity with BMI of 70 and over, adult Status: Chronic Discharge Summary-Simple/Stand Consultations Discharge Physical Examination Allergies: Coded Allergies: benazepril (Unverified Allergy, Unknown, 09/24/19) ibuprofen (Unverified Adverse Reaction, Mild, nose bleed, 09/24/19) Vitals & I&Os Vital Sign - Last 12Hours Date Time Temp Pulse Resp B/P (MAP) Pulse Ox O2 Delivery O2 Flow Rate FiO2 10/25/19 08:00 92 NIV CPAP 4.00 10/25/19 08:00 35.9 86 16 155/70 (98) 10/22/19 12:44 100 Intake and Output 10/25/19 00:00 Intake Total 2050 ml Output Total 1075 ml Balance 975 ml Hospital Course See final discharge diagnosis. Discharge Instructions to patient/family Please see electronic discharge instructions given to patient. Discharge Medications Reviewed and agree with Discharge Medication list on patient's Discharge Instruction sheet Clinical Quality Measures DVT/VTE Risk/Contraindication: Risk Factor Score Per Nursin RFS Level Per Nursing on Admit: 3=High DONNA EUBANKS MD Oct 25, 2019 11:27
--- NOTE | 2019-10-25 11:34 | Discharge Summary ---
Discharge [facility] Reconcile Patient Problems Problems Reviewed?: Yes Discharge Medications New, Converted or Re-Newed RX: Other Continued Medications: Aspirin (Aspirin EC) 81 Mg Tablet.dr 81 MG PO DAILY, TAB Atorvastatin Calcium (Atorvastatin Calcium) 10 Mg Tablet 10 MG PO HS, TAB Cinnamon Bark (Cinnamon) 500 Mg Capsule 500 MG PO BID, CAP Diclofenac Sodium (Diclofenac Sodium) 75 Mg Tablet.dr 75 MG PO BID, TAB Furosemide (Furosemide) 20 Mg Tablet 20 MG PO DAILY, TAB Gabapentin (Gabapentin) 400 Mg Capsule 400 MG PO QID PRN for NERVE PAIN, CAP Glipizide (Glipizide) 5 Mg Tablet 5 MG PO DAILY, TAB Glucosa Jasso 2Kcl/Chondroitin Jasso (Glucosamine & Chondroitin Cap) 1 Each Capsule 1 CAP PO BID, CAP Hydrocodone/Acetaminophen (Hydrocodone-Acetamin 5-325 mg) 1 Each Tablet 1 TAB PO BID PRN for PAIN-MODERATE (5-7), TAB Metformin HCl (Metformin HCl) 850 Mg Tablet 850 MG PO BID, TAB Metoprolol Succinate (Metoprolol Succinate) 25 Mg Tab.er.24h 25 MG PO DAILY, TAB Minoxidil (Minoxidil) 2.5 Mg Tablet 2.5 MG PO BID, TAB Multivitamin (Multivitamins) 1 Each Tablet 1 TAB PO DAILY, TAB Olmesartan Medoxomil (Olmesartan Medoxomil) 20 Mg Tablet 20 MG PO DAILY, TAB [place] 3 Polyunsat Fatty Acids (Fish Oil 1,000 mg Capsule) 1,000 Mg Cap 1000 MG PO BID, CAP Pentoxifylline (Pentoxifylline) 400 Mg Tablet.er 400 MG PO DAILY, TAB Pioglitazone HCl (Pioglitazone HCl) 30 Mg Tablet 30 MG PO DAILY, TAB Potassium Chloride (Potassium Chloride) 20 Meq Tab.er.prt 20 MEQ PO DAILY, TAB Discontinued Medications: Hydrochlorothiazide (Hydrochlorothiazide) 25 Mg Tablet 25 MG PO DAILY, TAB Patient Instructions Goal/Follow Up Appt: F/u appt with Corrine Wesley on Wednesday @ 1 pm You will have an appt with Vascular Surgery Patient Instructions: - Discussed the importance of Compression of LE - Discussed need to focus on some weight loss Activity & Diet Discharge Diet: ADA Diet, Cardiac Diet Activity as Tolerated: Yes Orders-Post D/C & Referrals Pneu Vac Indicated: Yes Copy Copies To 1: KAMAR Kolb HOLLY R MD Jan 22, 2020 11:34
[2019-10-25 12:00] VITALS: BP 156/71
[2019-10-25 14:23] VITALS: BP 155/70
--- NOTE | 2019-10-25 15:14 | NUR ---
CM/SS: Visited with pt and mother as to plan for discharge Plan: Pt will return home with no other services. Summary: Pt was able to talk to financial services. Pt will return home with no other services in place, per their request. Pt's mother has been assisting in her cares. Pt is encouraged to follow up with recommendations from the physician. Pt verbalizes understanding.
== END 2019-10-25 15:00 | disposition home or self-care (01) | DRG 300 ==
LOC: EDUNIT# 06:30 → ER FS 06:35 → ICU 08:20 → 4TH 10-23 09:11
PROVIDERS: ADMIT Internal Medicine; ATTEND Internal Medicine
DX: I83.892 Varicose veins of left lower extremity with other complications (principal); R58 Hemorrhage, not elsewhere classified; I83.022 Varicose veins of left lower extremity with ulcer of calf; D62 Acute posthemorrhagic anemia; L97.229 Non-pressure chronic ulcer of left calf with unspecified severity; N30.00 Acute cystitis without hematuria; E66.2 Morbid (severe) obesity with alveolar hypoventilation; Z68.45 Body mass index [BMI] 70 or greater, adult; I10 Essential (primary) hypertension; E11.51 Type 2 diabetes mellitus with diabetic peripheral angiopathy without gangrene; E78.00 Pure hypercholesterolemia, unspecified; E88.81 Metabolic syndrome and other insulin resistance; R55 Syncope and collapse; E87.6 Hypokalemia; E83.42 Hypomagnesemia; M19.91 Primary osteoarthritis, unspecified site; Z98.1 Arthrodesis status
CPT/HCPCS: 36415; 71045; 80048; 80053; 80061; 81000; 82962; 83735; 83874; 84100; 84484; 85014; 85018; 85025; 85610; 85730; 86850; 86900; 86901; 86920; 87040; 87081; 93005; 93041; 96360; 96361

== ENCOUNTER → 2019-10-31 | Outpatient (CLI) | payer OTHER ==
[~2019-10-31] MED LIST changes: +ASPI-983 PO; +CINN500C2 PO; +FURO20TA4 PO; +GLIP5POW MC; +GLIP5TAB13 PO; +GLUC1CAP37 PO; +METF-398 PO; +MINO2.5T PO; +MTP25TSR PO; +MULT1TAB69 PO; +OLME20TA24 PO; +OMG1KC PO
== END ==
LOC: WOUNDCARE 13:14
PROVIDERS: ATTEND Orthopaedic Surgery Hand Surgery
DX: E11.621 Type 2 diabetes mellitus with foot ulcer (principal); L97.512 Non-pressure chronic ulcer of other part of right foot with fat layer exposed; L97.222 Non-pressure chronic ulcer of left calf with fat layer exposed; I89.0 Lymphedema, not elsewhere classified; L95.8 Other vasculitis limited to the skin; L88 Pyoderma gangrenosum; I87.2 Venous insufficiency (chronic) (peripheral)
CPT/HCPCS: 11042

== ENCOUNTER 2019-11-03 13:44 | Emergency (ER) | payer OTHER ==
[~2019-11-03] VITALS: Ht 165.1 cm; Wt 233.1 kg
--- NOTE | 2019-11-03 14:42 | ED Cough/URI ---
General Chief Complaint: Respiratory Problems Stated Complaint: SOB, LOW O2 STATS IN 80'S Source: patient Exam Limitations: no limitations History of Present Illness Date Seen by Provider: Nov 03, 2019 Time Seen by Provider: 14:10 Initial Comments The patient is a morbidly obese 48-year-old female who presents for evaluation of mild cough and mild shortness of breath. She states that she went to see her PCP today and was told that her oxygen level was low and to go to the emergency department. The patient felt that the oxygen level was not picking up on her finger very well and was frustrated that she had to come to the emergency department. She was recently seen in the emergency department and was found to be anemic and this was secondary to some lower extremity varicose vein bleeding. She is not having any bleeding at this time. She states that she uses a CPAP machine at home but does not have any oxygen. She denies any cardiac or pulmonary problems. She states that she feels comfortable at this time and is saturating 99% on room air. He has no history of DVT or PE. She denies producti ve cough, recent fevers or chills, dizziness or syncope. Timing/Duration: other (few days) Severity/Quality: dry cough Associated Symptoms: chest pain/soreness, cough, fever/chills, muscle aches, nasal congestion, nasal drainage, wheezing Allergies and Home Medications Allergies Coded Allergies: benazepril (Unverified Allergy, Unknown, 09/24/19) ibuprofen (Unverified Adverse Reaction, Mild, nose bleed, 09/24/19) Home Medications Aspirin 81 Mg Tablet.dr, 81 MG PO DAILY, (Reported) Atorvastatin Calcium 10 Mg Tablet, 10 MG PO HS, (Reported) Cinnamon Bark 500 Mg Capsule, 500 MG PO BID, (Reported) Diclofenac Sodium 75 Mg Tablet.dr, 75 MG PO BID, (Reported) Furosemide 20 Mg Tablet, 20 MG PO DAILY, (Reported) Gabapentin 400 Mg Capsule, 400 MG PO QID PRN for NERVE PAIN, (Reported) Glipizide 5 Mg Tablet, 5 MG PO DAILY, (Reported) Glucosa Jasso 2Kcl/Chondroitin Jasso 1 Each Capsule, 1 CAP PO BID, (Reported) Hydrocodone/Acetaminophen 1 Each Tablet, 1 TAB PO BID PRN for PAIN-MODERATE (5- 7), (Reported) Metformin HCl 850 Mg Tablet, 850 MG PO BID, (Reported) Metoprolol Succinate 25 Mg Tab.er.24h, 25 MG PO DAILY, (Reported) Minoxidil 2.5 Mg Tablet, 2.5 MG PO BID, (Reported) Multivitamin 1 Each Tablet, 1 TAB PO DAILY, (Reported) Olmesartan Medoxomil 20 Mg Tablet, 20 MG PO DAILY, (Reported) [place] 3 Polyunsat Fatty Acids 1,000 Mg Cap, 1,000 MG PO BID, (Reported) Pentoxifylline 400 Mg Tablet.er, 400 MG PO DAILY, (Reported) Pioglitazone HCl 30 Mg Tablet, 30 MG PO DAILY, (Reported) Potassium Chloride 20 Meq Tab.er.prt, 20 MEQ PO DAILY, (Reported) Patient Home Medication List Home Medication List Reviewed: Yes Review of Systems Review of Systems Constitutional: no symptoms reported EENTM: no symptoms reported Respiratory: cough, short of breath (mild) Cardiovascular: no symptoms reported Gastrointestinal: no symptoms reported Genitourinary: no symptoms reported Musculoskeletal: no symptoms reported Skin: no symptoms reported Psychiatric/Neurological: No Symptoms Reported Hematologic/Lymphatic: No Symptoms Reported Immunological/Allergic: no symptoms reported All Other Systems Reviewed Negative Unless Noted: Yes Past Oekbupj-Dkvrym-Oegjpy Hx Past Med/Social Hx: Reviewed Nursing Past Med/Soc Hx Patient Social History Recent Foreign Travel: No Contact w/Someone Who Travel: No Recent Hopitalizations: No Immunizations Up To Date PED Vaccines UTD: Yes Date of Influenza Vaccine: Jul 22, 2019 Seasonal Allergies Seasonal Allergies: No Past Medical History Surgeries: Yes Orthopedic Respiratory: No (BMI>80, Activity intolerance) Cardiac: Yes Hypertension Neurological: No Genitourinary: No Gastrointestinal: No Musculoskeletal: Yes Arthritis Endocrine: Yes Diabetes, Non-Insulin dep HEENT: No Cancer: No Psychosocial: No Integumentary: Yes (developing weeping edema LE, Venous stasis discolored; chronic) Recent Skin Changes Blood Disorders: No Adverse Reaction/Blood Tranf: No Family Medical History Diabetes, Hypertension Physical Exam Capillary Refill : Height: '" Weight: lbs. oz. 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, no motor/sensory deficits, alert, normal mood/affect, oriented x 3 Skin: normal color, warm/dry Progress/Results/Core Measures Suspected Sepsis SIRS Temperature: Pulse: Respiratory Rate: Laboratory Tests 11/03/19 15:21: White Blood Count 9.9 Blood Pressure / Mean: Laboratory Tests 11/03/19 15:21: Creatinine 1.12, Platelet Count 477H, Total Bilirubin 0.2 Results/Orders Lab Results Laboratory Tests Test 11/03/19 15:21 Range/Units White Blood Count 9.9 4.3-11.0 10^3/uL Red Blood Count 2.70 L 4.35-5.85 10^6/uL Hemoglobin 7.2 L 11.5-16.0 G/DL Hematocrit 25 L 35-52 % Mean Corpuscular Volume 91 80-99 FL Mean Corpuscular Hemoglobin 27 25-34 PG Mean Corpuscular Hemoglobin Concent 29 L 32-36 G/DL Red Cell Distribution Width 17.1 H 10.0-14.5 % Platelet Count 477 H 130-400 10^3/uL Mean Platelet Volume 9.7 7.4-10.4 FL Neutrophils (%) (Auto) 77 H 42-75 % Lymphocytes (%) (Auto) 14 12-44 % Monocytes (%) (Auto) 8 0-12 % Eosinophils (%) (Auto) 1 0-10 % Basophils (%) (Auto) 0 0-10 % Neutrophils # (Auto) 7.7 1.8-7.8 X 10^3 Lymphocytes # (Auto) 1.4 1.0-4.0 X 10^3 Monocytes # (Auto) 0.8 0.0-1.0 X 10^3 Eosinophils # (Auto) 0.1 0.0-0.3 10^3/uL Basophils # (Auto) 0.0 0.0-0.1 10^3/uL Sodium Level 141 135-145 MMOL/L Potassium Level 4.3 3.6-5.0 MMOL/L Chloride Level 101 98-107 MMOL/L Carbon Dioxide Level 27 21-32 MMOL/L Anion Gap 13 5-14 MMOL/L Blood Urea Nitrogen 16 7-18 MG/DL Creatinine 1.12 0.60-1.30 MG/DL Estimat Glomerular Filtration Rate 52 BUN/Creatinine Ratio 14 Glucose Level 101 70-105 MG/DL Calcium Level 9.6 8.5-10.1 MG/DL Corrected Calcium 10.0 8.5-10.1 MG/DL Total Bilirubin 0.2 0.1-1.0 MG/DL Aspartate Amino Transf (AST/SGOT) 16 5-34 U/L Alanine Aminotransferase (ALT/SGPT) 23 0-55 U/L Alkaline Phosphatase 62 40-136 U/L Troponin I < 0.30 <0.30 NG/ML Pro-B-Type Natriuretic Peptide 1602.0 H <75.0 PG/ML Total Protein 7.3 6.4-8.2 GM/DL Albumin 3.5 3.2-4.5 GM/DL My Orders Orders - LEVI BERRY DO Cbc With Automated Diff (11/03/19 14:19) Comprehensive Metabolic Panel (11/03/19 14:19) Chest Pa/Lat (2 View) (11/03/19 14:19) Ekg Tracing (11/03/19 14:19) O2 (11/03/19 14:19) Ed Iv/Invasive Line Start (11/03/19 14:19) Monitor-Rhythm Ecg Trace Only (11/03/19 14:19) Troponin I Fs (11/03/19 14:19) Probnp Fs (11/03/19 14:19) Continuous Pulse Ox (11/03/19 14:19) Vital Signs/I&O Capillary Refill : Progress Note : Progress Note @1640 - the patient and her mother have been updated on lab and imaging results. The patient is anemic but has slightly increased her hemoglobin from her last blood draw. Her shortness of breath is exertional and when she is seated and not exerting herself it goes away. I advised the patient to discuss with her PCP whether she might benefit from a blood transfusion which could be done as an outpatient. The patient states she will have this discussion with her PCP. The patient has no pleuritic chest discomfort. Advised the patient to return to the emergency Department immediately for new or worsening symptoms. She expresses verbal understanding and agreement with the plan and states that she wants to go home right now. Diagnostic Imaging Diagonstic Imaging: Xray Comments [facility] [place] [place] NAME: ANDRAE [facility]OR[facility] REC#: [id number] PT STATUS: REG ER : 04/11/1971 PHYSICIAN: LEVI BERRY DO ADMIT DATE: 11/03/19/ER FS Draft Date of Exam:11/03/19 CHEST PA/LAT (2 VIEW) HISTORY: Shortness of breath and cough. TECHNIQUE: Two views of the chest. COMPARISON: 10/23/2019. FINDINGS: Lung volumes are low. Evaluation is somewhat suboptimal due to body habitus. There does appear to be cardiomegaly with central vascular congestion. No pleural effusion or pneumothorax is seen. No focal consolidation is seen. IMPRESSION: 1. Cardiomegaly with central vascular congestion. These findings may be accentuated by the low lung volumes. Dictated on workstation # [id number] Dict: 11/03/19 1439 Trans: 11/03/19 1442 [facility] [id number] Interpreted by: BLANK STONE MD Electronically signed by: Departure Impression Primary Impression: Exertional dyspnea Additional Impression: Chronic anemia Disposition: HOME, SELF-CARE Condition: Stable Departure-Patient Inst. Decision time for Depature: 16:43 Referrals: [facility] (PCP) Primary Care Physician GIRMA ZHANG APRN (Family) Primary Care Physician Patient Instructions: Anemia Caused by Low Iron, Adult (DC), Cough, Adult (DC) Add. Discharge Instructions: As discussed he should speak with your doctor about the benefits of an outpatient blood transfusion to improve your low hemoglobin. Return to the Emergency Department immediately for difficulty breathing, new or worsening symptoms. Follow-up with your doctor in the next 1-2 days. LEVI BERRY DO Nov 03, 2019 14:42
[2019-11-03 15:34] LABS: HEMATOCRIT 25 % (35-52); HEMOGLOBIN 7.2 G/DL (11.5-16.0); MEAN CORPUSCULAR HEMOGLOBIN 27 PG (25-34); MEAN CORPUSCULAR VOLUME 91 FL (80-99); WHITE BLOOD COUNT 9.9 10^3/uL (4.3-11.0)
[2019-11-03 15:35] LABS: BASOPHILS % (AUTO) 0 % (0-10); EOSINOPHILS # (AUTO) 0.1 10^3/uL (0.0-0.3); EOSINOPHILS % (AUTO) 1 % (0-10); LYMPHOCYTES # (AUTO) 1.4 X 10^3 (1.0-4.0); LYMPHOCYTES % (AUTO) 14 % (12-44); MEAN CORPUSCULAR HGB CONC 29 G/DL (32-36); MEAN PLATELET VOLUME 9.7 FL (7.4-10.4); MONOCYTES # (AUTO) 0.8 X 10^3 (0.0-1.0); MONOCYTES % (AUTO) 8 % (0-12); NEUTROPHILS # (AUTO) 7.7 X 10^3 (1.8-7.8); NEUTROPHILS % (AUTO) 77 % (42-75); PLATELET COUNT 477 10^3/uL (130-400); RED CELL DISTRIBUTION WIDTH 17.1 % (10.0-14.5)
[2019-11-03 16:10] LABS: ALANINE AMINOTRANSFERASE 23 U/L (0-55); ALKALINE PHOSPHATASE 62 U/L (40-136); BILIRUBIN,TOTAL 0.2 MG/DL (0.1-1.0); BUN/CREATININE RATIO 14; CALCIUM 9.6 MG/DL (8.5-10.1); CARBON DIOXIDE 27 MMOL/L (21-32); CHLORIDE 101 MMOL/L (98-107); CREATININE SERUM 1.12 MG/DL (0.60-1.30); GFR ESTIMATED 52; GLUCOSE 101 MG/DL (70-105); POTASSIUM 4.3 MMOL/L (3.6-5.0); SODIUM 141 MMOL/L (135-145)
[2019-11-03 16:11] LABS: ALBUMIN 3.5 GM/DL (3.2-4.5); TOTAL PROTEIN 7.3 GM/DL (6.4-8.2)
[2019-11-03 17:00] VITALS: BP 171/58
== END 2019-11-03 17:00 | disposition home or self-care (01) ==
LOC: EDUNIT# 13:44 → ER FS 13:46
DX: R06.09 Other forms of dyspnea (principal); D64.9 Anemia, unspecified; I10 Essential (primary) hypertension; E11.9 Type 2 diabetes mellitus without complications; Z79.82 Long term (current) use of aspirin; Z79.84 Long term (current) use of oral hypoglycemic drugs; Z88.8 Allergy status to other drugs, medicaments and biological substances; Z88.6 Allergy status to analgesic agent; Z82.49 Family history of ischemic heart disease and other diseases of the circulatory system
CPT/HCPCS: 36415; 71046; 80053; 83880; 84484; 85025; 93005

== ENCOUNTER → 2019-11-14 | Outpatient (CLI) | payer OTHER | LOC: WOUNDCARE 12:39 | PROVIDERS: ATTEND Orthopaedic Surgery Hand Surgery | DX: E11.621 Type 2 diabetes mellitus with foot ulcer (principal); L97.512 Non-pressure chronic ulcer of other part of right foot with fat layer exposed; L97.222 Non-pressure chronic ulcer of left calf with fat layer exposed; I89.0 Lymphedema, not elsewhere classified; L95.8 Other vasculitis limited to the skin; L88 Pyoderma gangrenosum; I87.2 Venous insufficiency (chronic) (peripheral) | CPT/HCPCS: 99213 ==

== ENCOUNTER 2019-11-21 13:47 | Outpatient (RCR) | payer OTHER ==
[2019-11-14 14:15] VITALS: BP 141/67
[2019-11-14] MEDS: IRON SUCROSE 200 MG/10 ML (VENOFER) VIAL IV SCH (14:40)
[2019-11-17 12:59] VITALS: BP 161/71
[2019-11-17] MEDS: IRON SUCROSE 200 MG/10 ML (VENOFER) VIAL IV SCH (13:08)
[~2019-11-21 13:47] MED LIST changes: +IRON SUCROSE 200 MG/10 ML (VENOFER) VIAL IV ONE
[2019-11-21 13:48] VITALS: BP 132/61
[2019-11-21] MEDS: IRON SUCROSE 200 MG/10 ML (VENOFER) VIAL IV SCH (14:11)
== END 2019-11-21 14:45 | disposition home or self-care (01) ==
LOC: SDC 13:47
PROVIDERS: ATTEND Nurse Practitioner Family
DX: D50.9 Iron deficiency anemia, unspecified (principal)
CPT/HCPCS: 96365

== ENCOUNTER → 2019-11-21 | Outpatient (CLI) | payer OTHER | LOC: WOUNDCARE 12:40 | PROVIDERS: ATTEND Orthopaedic Surgery Hand Surgery | DX: E11.621 Type 2 diabetes mellitus with foot ulcer (principal); L97.512 Non-pressure chronic ulcer of other part of right foot with fat layer exposed; L97.222 Non-pressure chronic ulcer of left calf with fat layer exposed; I89.0 Lymphedema, not elsewhere classified; L95.8 Other vasculitis limited to the skin; L88 Pyoderma gangrenosum; I87.2 Venous insufficiency (chronic) (peripheral) | CPT/HCPCS: 11042; 11045 ==

== ENCOUNTER → 2019-11-28 | Outpatient (CLI) | payer OTHER ==
[~2019-11-28] MED LIST changes: -IRON SUCROSE 200 MG/10 ML (VENOFER) VIAL IV ONE
== END ==
LOC: WOUNDCARE 12:38
PROVIDERS: ATTEND Orthopaedic Surgery Hand Surgery
DX: E11.621 Type 2 diabetes mellitus with foot ulcer (principal); I89.0 Lymphedema, not elsewhere classified; L97.512 Non-pressure chronic ulcer of other part of right foot with fat layer exposed; L95.8 Other vasculitis limited to the skin; L88 Pyoderma gangrenosum; L97.222 Non-pressure chronic ulcer of left calf with fat layer exposed; I87.2 Venous insufficiency (chronic) (peripheral); E11.52 Type 2 diabetes mellitus with diabetic peripheral angiopathy with gangrene
CPT/HCPCS: 11042; 97597; 97598

== ENCOUNTER → 2019-12-05 | Outpatient (CLI) | payer OTHER ==
[~2019-12-05] MED LIST changes: +ACHD5005 PO; -HYDR-3812 PO
== END ==
LOC: WOUNDCARE 12:32
PROVIDERS: ATTEND Surgery
DX: E11.621 Type 2 diabetes mellitus with foot ulcer (principal); E11.52 Type 2 diabetes mellitus with diabetic peripheral angiopathy with gangrene; L97.512 Non-pressure chronic ulcer of other part of right foot with fat layer exposed; L97.222 Non-pressure chronic ulcer of left calf with fat layer exposed; I87.332 Chronic venous hypertension (idiopathic) with ulcer and inflammation of left lower extremity; I89.0 Lymphedema, not elsewhere classified; I96 Gangrene, not elsewhere classified
CPT/HCPCS: 11042

== ENCOUNTER → 2019-12-12 | Outpatient (CLI) | payer OTHER | LOC: WOUNDCARE 12:56 | PROVIDERS: ATTEND Surgery | DX: E11.621 Type 2 diabetes mellitus with foot ulcer (principal); E66.01 Morbid (severe) obesity due to excess calories; L97.512 Non-pressure chronic ulcer of other part of right foot with fat layer exposed; L97.222 Non-pressure chronic ulcer of left calf with fat layer exposed; I87.332 Chronic venous hypertension (idiopathic) with ulcer and inflammation of left lower extremity; I89.0 Lymphedema, not elsewhere classified; E11.52 Type 2 diabetes mellitus with diabetic peripheral angiopathy with gangrene | CPT/HCPCS: 11042; 11104 ==

== ENCOUNTER → 2019-12-19 | Outpatient (CLI) | payer OTHER | LOC: CARD 12:58 | PROVIDERS: ATTEND Internal Medicine Cardiovascular Disease | DX: I11.0 Hypertensive heart disease with heart failure (principal); I50.9 Heart failure, unspecified; E78.2 Mixed hyperlipidemia; D64.9 Anemia, unspecified | CPT/HCPCS: 93306 ==

== ENCOUNTER → 2019-12-19 | Outpatient (CLI) | payer OTHER | LOC: WOUNDCARE 12:45 | PROVIDERS: ATTEND Surgery | DX: E11.621 Type 2 diabetes mellitus with foot ulcer (principal); E11.52 Type 2 diabetes mellitus with diabetic peripheral angiopathy with gangrene; I96 Gangrene, not elsewhere classified; L97.512 Non-pressure chronic ulcer of other part of right foot with fat layer exposed; L97.222 Non-pressure chronic ulcer of left calf with fat layer exposed; E66.01 Morbid (severe) obesity due to excess calories; I87.332 Chronic venous hypertension (idiopathic) with ulcer and inflammation of left lower extremity; I89.0 Lymphedema, not elsewhere classified | CPT/HCPCS: 11042 ==

== ENCOUNTER → 2020-01-02 | Outpatient (CLI) | payer OTHER | LOC: WOUNDCARE 12:47 | PROVIDERS: ATTEND Surgery | DX: E11.621 Type 2 diabetes mellitus with foot ulcer (principal); L97.512 Non-pressure chronic ulcer of other part of right foot with fat layer exposed; L97.222 Non-pressure chronic ulcer of left calf with fat layer exposed; E66.01 Morbid (severe) obesity due to excess calories; I87.332 Chronic venous hypertension (idiopathic) with ulcer and inflammation of left lower extremity; I89.0 Lymphedema, not elsewhere classified | CPT/HCPCS: 99214 ==

== ENCOUNTER → 2020-02-06 | Outpatient (CLI) | payer OTHER | LOC: WOUNDCARE 13:52 | PROVIDERS: ATTEND Surgery | DX: E11.621 Type 2 diabetes mellitus with foot ulcer (principal); E11.52 Type 2 diabetes mellitus with diabetic peripheral angiopathy with gangrene; I96 Gangrene, not elsewhere classified; I89.0 Lymphedema, not elsewhere classified; E66.01 Morbid (severe) obesity due to excess calories; I87.332 Chronic venous hypertension (idiopathic) with ulcer and inflammation of left lower extremity; L97.222 Non-pressure chronic ulcer of left calf with fat layer exposed; L97.512 Non-pressure chronic ulcer of other part of right foot with fat layer exposed; Z68.45 Body mass index [BMI] 70 or greater, adult | CPT/HCPCS: 11042 ==

== ENCOUNTER → 2020-02-20 | Outpatient (CLI) | payer SELFPAY | LOC: WOUNDCARE 14:05 | PROVIDERS: ATTEND Surgery | DX: E11.621 Type 2 diabetes mellitus with foot ulcer (principal); E11.52 Type 2 diabetes mellitus with diabetic peripheral angiopathy with gangrene; I96 Gangrene, not elsewhere classified; L97.512 Non-pressure chronic ulcer of other part of right foot with fat layer exposed; I87.332 Chronic venous hypertension (idiopathic) with ulcer and inflammation of left lower extremity; M70.862 Other soft tissue disorders related to use, overuse and pressure, left lower leg; I89.0 Lymphedema, not elsewhere classified; L97.222 Non-pressure chronic ulcer of left calf with fat layer exposed; E66.01 Morbid (severe) obesity due to excess calories; Z68.45 Body mass index [BMI] 70 or greater, adult | CPT/HCPCS: 11042 ==

== ENCOUNTER → 2020-02-27 | Outpatient (CLI) | payer SELFPAY | LOC: WOUNDCARE 14:03 | PROVIDERS: ATTEND Surgery | DX: E11.621 Type 2 diabetes mellitus with foot ulcer (principal); L97.512 Non-pressure chronic ulcer of other part of right foot with fat layer exposed; I87.332 Chronic venous hypertension (idiopathic) with ulcer and inflammation of left lower extremity; I89.0 Lymphedema, not elsewhere classified; L97.222 Non-pressure chronic ulcer of left calf with fat layer exposed; E66.01 Morbid (severe) obesity due to excess calories; Z68.45 Body mass index [BMI] 70 or greater, adult; M70.862 Other soft tissue disorders related to use, overuse and pressure, left lower leg; I10 Essential (primary) hypertension; M19.91 Primary osteoarthritis, unspecified site; Z98.1 Arthrodesis status | CPT/HCPCS: 11042 ==

== ENCOUNTER → 2020-03-05 | Outpatient (CLI) | payer BC | LOC: WOUNDCARE 14:13 | PROVIDERS: ATTEND Surgery | DX: L97.222 Non-pressure chronic ulcer of left calf with fat layer exposed (principal); E11.621 Type 2 diabetes mellitus with foot ulcer; E11.52 Type 2 diabetes mellitus with diabetic peripheral angiopathy with gangrene; I89.0 Lymphedema, not elsewhere classified; E66.01 Morbid (severe) obesity due to excess calories; L97.512 Non-pressure chronic ulcer of other part of right foot with fat layer exposed; I87.332 Chronic venous hypertension (idiopathic) with ulcer and inflammation of left lower extremity | CPT/HCPCS: 11042 ==

== ENCOUNTER 2020-03-07 05:45 | Outpatient (RCR) | payer BC, OTHER ==
[~2020-03-07 05:45] MED LIST changes: +MULT-567 PO; -MULT1TAB69 PO
== END 2020-06-05 | disposition home or self-care (01) ==
LOC: PREOP 05:45
PROVIDERS: ATTEND Surgery
DX: Z01.818 Encounter for other preprocedural examination (principal)

== ENCOUNTER → 2020-03-19 | Outpatient (CLI) | payer BC, OTHER ==
[~2020-03-19] MED LIST changes: -MULT-567 PO; +MULT1TAB69 PO
== END ==
LOC: WOUNDCARE 14:13
PROVIDERS: ATTEND Surgery
DX: E11.621 Type 2 diabetes mellitus with foot ulcer (principal); L97.222 Non-pressure chronic ulcer of left calf with fat layer exposed; I89.0 Lymphedema, not elsewhere classified; E66.01 Morbid (severe) obesity due to excess calories; L97.512 Non-pressure chronic ulcer of other part of right foot with fat layer exposed; I87.332 Chronic venous hypertension (idiopathic) with ulcer and inflammation of left lower extremity; M79.89 Other specified soft tissue disorders; I10 Essential (primary) hypertension; Z68.45 Body mass index [BMI] 70 or greater, adult
CPT/HCPCS: 11042

== ENCOUNTER → 2020-04-02 | Outpatient (CLI) | payer BC ==
[~2020-04-02] MED LIST changes: +MULT-567 PO; -MULT1TAB69 PO
== END ==
LOC: WOUNDCARE 14:03
PROVIDERS: ATTEND Surgery
DX: I87.332 Chronic venous hypertension (idiopathic) with ulcer and inflammation of left lower extremity (principal); L97.223 Non-pressure chronic ulcer of left calf with necrosis of muscle; L97.222 Non-pressure chronic ulcer of left calf with fat layer exposed; I89.0 Lymphedema, not elsewhere classified; E11.621 Type 2 diabetes mellitus with foot ulcer; L97.512 Non-pressure chronic ulcer of other part of right foot with fat layer exposed; E66.01 Morbid (severe) obesity due to excess calories; E11.52 Type 2 diabetes mellitus with diabetic peripheral angiopathy with gangrene
CPT/HCPCS: 11042; 11045

== ENCOUNTER → 2020-04-09 | Outpatient (CLI) | payer BC | LOC: WOUNDCARE 14:02 | PROVIDERS: ATTEND Surgery | DX: E11.621 Type 2 diabetes mellitus with foot ulcer (principal); E11.52 Type 2 diabetes mellitus with diabetic peripheral angiopathy with gangrene; I87.332 Chronic venous hypertension (idiopathic) with ulcer and inflammation of left lower extremity; I89.0 Lymphedema, not elsewhere classified; E66.01 Morbid (severe) obesity due to excess calories; I96 Gangrene, not elsewhere classified; L97.222 Non-pressure chronic ulcer of left calf with fat layer exposed; L97.223 Non-pressure chronic ulcer of left calf with necrosis of muscle; L97.512 Non-pressure chronic ulcer of other part of right foot with fat layer exposed; Z68.45 Body mass index [BMI] 70 or greater, adult | CPT/HCPCS: 11042; 11043 ==

== ENCOUNTER → 2020-04-16 | Outpatient (CLI) | payer BC | LOC: WOUNDCARE 13:41 | PROVIDERS: ATTEND Surgery | DX: E11.621 Type 2 diabetes mellitus with foot ulcer (principal); E11.52 Type 2 diabetes mellitus with diabetic peripheral angiopathy with gangrene; I96 Gangrene, not elsewhere classified; L97.223 Non-pressure chronic ulcer of left calf with necrosis of muscle; L97.512 Non-pressure chronic ulcer of other part of right foot with fat layer exposed; I87.332 Chronic venous hypertension (idiopathic) with ulcer and inflammation of left lower extremity; I89.0 Lymphedema, not elsewhere classified; E66.01 Morbid (severe) obesity due to excess calories; Z68.45 Body mass index [BMI] 70 or greater, adult | CPT/HCPCS: 11042; 11043; 11046 ==

== ENCOUNTER → 2020-04-30 | Outpatient (CLI) | payer BC | LOC: WOUNDCARE 13:57 | PROVIDERS: ATTEND Surgery | DX: I87.332 Chronic venous hypertension (idiopathic) with ulcer and inflammation of left lower extremity (principal); L97.222 Non-pressure chronic ulcer of left calf with fat layer exposed; I89.0 Lymphedema, not elsewhere classified; E11.622 Type 2 diabetes mellitus with other skin ulcer; E11.52 Type 2 diabetes mellitus with diabetic peripheral angiopathy with gangrene; E66.01 Morbid (severe) obesity due to excess calories; L97.223 Non-pressure chronic ulcer of left calf with necrosis of muscle | CPT/HCPCS: 11042; 11046; G0463 ==

== ENCOUNTER → 2020-05-07 | Outpatient (CLI) | payer BC | LOC: WOUNDCARE 13:52 | PROVIDERS: ATTEND Surgery | DX: E11.52 Type 2 diabetes mellitus with diabetic peripheral angiopathy with gangrene (principal); E11.622 Type 2 diabetes mellitus with other skin ulcer; I96 Gangrene, not elsewhere classified; I87.332 Chronic venous hypertension (idiopathic) with ulcer and inflammation of left lower extremity; L97.222 Non-pressure chronic ulcer of left calf with fat layer exposed; L97.223 Non-pressure chronic ulcer of left calf with necrosis of muscle; I89.0 Lymphedema, not elsewhere classified; E66.01 Morbid (severe) obesity due to excess calories | CPT/HCPCS: 11042; 11043; 11046; G0463 ==

== ENCOUNTER → 2020-05-14 | Outpatient (CLI) | payer BC | LOC: WOUNDCARE 13:49 | PROVIDERS: ATTEND Surgery | DX: E11.622 Type 2 diabetes mellitus with other skin ulcer (principal); E11.52 Type 2 diabetes mellitus with diabetic peripheral angiopathy with gangrene; I96 Gangrene, not elsewhere classified; I87.332 Chronic venous hypertension (idiopathic) with ulcer and inflammation of left lower extremity; L97.222 Non-pressure chronic ulcer of left calf with fat layer exposed; L97.223 Non-pressure chronic ulcer of left calf with necrosis of muscle; I89.0 Lymphedema, not elsewhere classified; E66.01 Morbid (severe) obesity due to excess calories; Z68.45 Body mass index [BMI] 70 or greater, adult | CPT/HCPCS: 11042; 11043; 11046; G0463 ==

== ENCOUNTER → 2020-05-21 | Outpatient (CLI) | payer BC ==
[2020-05-21 15:48] LABS: BASOPHILS % (AUTO) 0 % (0-10); EOSINOPHILS # (AUTO) 0.2 10^3/uL (0.0-0.3); EOSINOPHILS % (AUTO) 2 % (0-10); HEMATOCRIT 36 % (35-52); HEMOGLOBIN 10.7 G/DL (11.5-16.0); LYMPHOCYTES # (AUTO) 1.1 X 10^3 (1.0-4.0); LYMPHOCYTES % (AUTO) 14 % (12-44); MEAN CORPUSCULAR HEMOGLOBIN 24 PG (25-34); MEAN CORPUSCULAR HGB CONC 30 G/DL (32-36); MEAN CORPUSCULAR VOLUME 82 FL (80-99); MEAN PLATELET VOLUME 11.3 FL (7.4-10.4); MONOCYTES # (AUTO) 0.7 X 10^3 (0.0-1.0); MONOCYTES % (AUTO) 8 % (0-12); NEUTROPHILS # (AUTO) 6.1 X 10^3 (1.8-7.8); NEUTROPHILS % (AUTO) 76 % (42-75); PLATELET COUNT 312 10^3/uL (130-400); RED CELL DISTRIBUTION WIDTH 19.9 % (10.0-14.5); WHITE BLOOD COUNT 8.1 10^3/uL (4.3-11.0)
[2020-05-21 16:21] LABS: CREATININE SERUM 1.08 MG/DL (0.60-1.30); POTASSIUM 3.8 MMOL/L (3.6-5.0)
[2020-05-21 16:22] LABS: ALBUMIN 3.9 GM/DL (3.2-4.5); BILIRUBIN,TOTAL 0.5 MG/DL (0.1-1.0); CALCIUM 10.1 MG/DL (8.5-10.1); TOTAL PROTEIN 8.5 GM/DL (6.4-8.2)
== END ==
LOC: LAB 15:27
PROVIDERS: ATTEND Surgery
DX: E11.622 Type 2 diabetes mellitus with other skin ulcer (principal); L97.223 Non-pressure chronic ulcer of left calf with necrosis of muscle
CPT/HCPCS: 36415; 80053; 83036; 85025

== ENCOUNTER → 2020-05-21 | Outpatient (CLI) | payer BC | LOC: WOUNDCARE 13:56 | PROVIDERS: ATTEND Surgery | DX: I87.332 Chronic venous hypertension (idiopathic) with ulcer and inflammation of left lower extremity (principal); L97.223 Non-pressure chronic ulcer of left calf with necrosis of muscle; I89.0 Lymphedema, not elsewhere classified; E66.01 Morbid (severe) obesity due to excess calories; E11.622 Type 2 diabetes mellitus with other skin ulcer; E11.52 Type 2 diabetes mellitus with diabetic peripheral angiopathy with gangrene; L97.222 Non-pressure chronic ulcer of left calf with fat layer exposed | CPT/HCPCS: 11042; 11043; 11046; G0463 ==

== ENCOUNTER → 2020-05-29 | Outpatient (CLI) | payer BC | LOC: WOUNDCARE 14:50 | PROVIDERS: ATTEND Surgery | DX: I87.332 Chronic venous hypertension (idiopathic) with ulcer and inflammation of left lower extremity (principal); L97.222 Non-pressure chronic ulcer of left calf with fat layer exposed; L97.223 Non-pressure chronic ulcer of left calf with necrosis of muscle; I89.0 Lymphedema, not elsewhere classified; E66.01 Morbid (severe) obesity due to excess calories; E11.622 Type 2 diabetes mellitus with other skin ulcer | CPT/HCPCS: 11042; 11043; 11046; G0463 ==

== ENCOUNTER → 2020-06-04 | Outpatient (CLI) | payer BC | LOC: WOUNDCARE 14:02 | PROVIDERS: ATTEND Surgery | DX: E11.622 Type 2 diabetes mellitus with other skin ulcer (principal); E11.52 Type 2 diabetes mellitus with diabetic peripheral angiopathy with gangrene; I96 Gangrene, not elsewhere classified; I87.332 Chronic venous hypertension (idiopathic) with ulcer and inflammation of left lower extremity; L97.222 Non-pressure chronic ulcer of left calf with fat layer exposed; L97.223 Non-pressure chronic ulcer of left calf with necrosis of muscle; I89.0 Lymphedema, not elsewhere classified; E66.01 Morbid (severe) obesity due to excess calories; Z68.45 Body mass index [BMI] 70 or greater, adult | CPT/HCPCS: 11042; 11045; G0463 ==

== ENCOUNTER → 2020-06-11 | Outpatient (CLI) | payer BC ==
[~2020-06-11] MED LIST changes: +ASPI-1238 PO; -ASPI-983 PO
== END ==
LOC: WOUNDCARE 13:57
PROVIDERS: ATTEND Surgery
DX: E11.622 Type 2 diabetes mellitus with other skin ulcer (principal); E11.52 Type 2 diabetes mellitus with diabetic peripheral angiopathy with gangrene; I87.332 Chronic venous hypertension (idiopathic) with ulcer and inflammation of left lower extremity; I96 Gangrene, not elsewhere classified; L97.222 Non-pressure chronic ulcer of left calf with fat layer exposed; L97.223 Non-pressure chronic ulcer of left calf with necrosis of muscle; I89.0 Lymphedema, not elsewhere classified; E66.01 Morbid (severe) obesity due to excess calories; Z68.45 Body mass index [BMI] 70 or greater, adult
CPT/HCPCS: 11042; 11043; 11046; G0463; 99213

== ENCOUNTER → 2020-06-18 | Outpatient (CLI) | payer BC | LOC: WOUNDCARE 13:55 | PROVIDERS: ATTEND Surgery | DX: E11.622 Type 2 diabetes mellitus with other skin ulcer (principal); E11.52 Type 2 diabetes mellitus with diabetic peripheral angiopathy with gangrene; I96 Gangrene, not elsewhere classified; I87.332 Chronic venous hypertension (idiopathic) with ulcer and inflammation of left lower extremity; I89.0 Lymphedema, not elsewhere classified; E66.01 Morbid (severe) obesity due to excess calories; L97.223 Non-pressure chronic ulcer of left calf with necrosis of muscle; L97.222 Non-pressure chronic ulcer of left calf with fat layer exposed; Z68.45 Body mass index [BMI] 70 or greater, adult | CPT/HCPCS: 11042; 11043; 11046; G0463 ==

== ENCOUNTER → 2020-06-25 | Outpatient (CLI) | payer BC | LOC: WOUNDCARE 13:51 | PROVIDERS: ATTEND Surgery | DX: I87.332 Chronic venous hypertension (idiopathic) with ulcer and inflammation of left lower extremity (principal); L97.222 Non-pressure chronic ulcer of left calf with fat layer exposed; I89.0 Lymphedema, not elsewhere classified; E11.622 Type 2 diabetes mellitus with other skin ulcer; E11.52 Type 2 diabetes mellitus with diabetic peripheral angiopathy with gangrene; E66.01 Morbid (severe) obesity due to excess calories; L97.223 Non-pressure chronic ulcer of left calf with necrosis of muscle | CPT/HCPCS: 11042; 11043; 11046; G0463 ==

== ENCOUNTER → 2020-07-02 | Outpatient (CLI) | payer BC | LOC: WOUNDCARE 14:12 | PROVIDERS: ATTEND Surgery | DX: I87.332 Chronic venous hypertension (idiopathic) with ulcer and inflammation of left lower extremity (principal); I89.0 Lymphedema, not elsewhere classified; L97.222 Non-pressure chronic ulcer of left calf with fat layer exposed; E66.01 Morbid (severe) obesity due to excess calories; E11.622 Type 2 diabetes mellitus with other skin ulcer; E11.52 Type 2 diabetes mellitus with diabetic peripheral angiopathy with gangrene | CPT/HCPCS: 29581; A6253; G0463 ==

== ENCOUNTER 2020-07-10 14:06 | Outpatient (RCR) | payer BC | END 2020-08-06 14:30 | disposition home or self-care (01) | PROVIDERS: ATTEND Surgery | DX: I87.332 Chronic venous hypertension (idiopathic) with ulcer and inflammation of left lower extremity (principal); I89.0 Lymphedema, not elsewhere classified; L97.223 Non-pressure chronic ulcer of left calf with necrosis of muscle; L97.222 Non-pressure chronic ulcer of left calf with fat layer exposed; E11.622 Type 2 diabetes mellitus with other skin ulcer; E66.01 Morbid (severe) obesity due to excess calories; I10 Essential (primary) hypertension ==

== ENCOUNTER → 2020-07-10 | Outpatient (CLI) | payer BC | LOC: WOUNDCARE 13:57 | PROVIDERS: ATTEND Surgery | DX: I87.332 Chronic venous hypertension (idiopathic) with ulcer and inflammation of left lower extremity (principal); I89.0 Lymphedema, not elsewhere classified; L97.222 Non-pressure chronic ulcer of left calf with fat layer exposed; E66.01 Morbid (severe) obesity due to excess calories; E11.622 Type 2 diabetes mellitus with other skin ulcer; E11.52 Type 2 diabetes mellitus with diabetic peripheral angiopathy with gangrene | CPT/HCPCS: 29581; A6253; G0463 ==

== ENCOUNTER → 2020-07-16 | Outpatient (CLI) | payer BC | LOC: WOUNDCARE 14:02 | PROVIDERS: ATTEND Surgery | DX: I96 Gangrene, not elsewhere classified (principal); I87.332 Chronic venous hypertension (idiopathic) with ulcer and inflammation of left lower extremity; E11.622 Type 2 diabetes mellitus with other skin ulcer; E66.01 Morbid (severe) obesity due to excess calories; L97.222 Non-pressure chronic ulcer of left calf with fat layer exposed; I89.0 Lymphedema, not elsewhere classified; Z68.45 Body mass index [BMI] 70 or greater, adult | CPT/HCPCS: A6253; G0463; 99213 ==

== ENCOUNTER → 2020-07-23 | Outpatient (CLI) | payer BC | LOC: WOUNDCARE 14:04 | PROVIDERS: ATTEND Surgery | DX: I96 Gangrene, not elsewhere classified (principal); I87.332 Chronic venous hypertension (idiopathic) with ulcer and inflammation of left lower extremity; E11.622 Type 2 diabetes mellitus with other skin ulcer; E66.01 Morbid (severe) obesity due to excess calories; L97.222 Non-pressure chronic ulcer of left calf with fat layer exposed; I89.0 Lymphedema, not elsewhere classified; Z68.45 Body mass index [BMI] 70 or greater, adult | CPT/HCPCS: A6253; G0463; 99213 ==

== ENCOUNTER → 2020-08-01 | Outpatient (CLI) | payer BC | LOC: WOUNDCARE 13:22 | PROVIDERS: ATTEND Surgery | DX: I87.332 Chronic venous hypertension (idiopathic) with ulcer and inflammation of left lower extremity (principal); I89.0 Lymphedema, not elsewhere classified; I96 Gangrene, not elsewhere classified; L97.222 Non-pressure chronic ulcer of left calf with fat layer exposed; E66.9 Obesity, unspecified; E11.622 Type 2 diabetes mellitus with other skin ulcer; Z68.25 Body mass index [BMI] 25.0-25.9, adult | CPT/HCPCS: A6253; G0463; 99213 ==

== ENCOUNTER → 2020-08-06 | Outpatient (CLI) | payer BC | LOC: WOUNDCARE 13:59 | PROVIDERS: ATTEND Surgery | DX: I87.333 Chronic venous hypertension (idiopathic) with ulcer and inflammation of bilateral lower extremity (principal); I82.503 Chronic embolism and thrombosis of unspecified deep veins of lower extremity, bilateral; I89.0 Lymphedema, not elsewhere classified; L97.222 Non-pressure chronic ulcer of left calf with fat layer exposed; I96 Gangrene, not elsewhere classified; E11.622 Type 2 diabetes mellitus with other skin ulcer; E66.01 Morbid (severe) obesity due to excess calories; Z68.25 Body mass index [BMI] 25.0-25.9, adult | CPT/HCPCS: 29581; A6253; G0463 ==

== ENCOUNTER → 2020-08-13 | Outpatient (CLI) | payer BC | LOC: WOUNDCARE 14:04 | PROVIDERS: ATTEND Surgery | DX: I87.332 Chronic venous hypertension (idiopathic) with ulcer and inflammation of left lower extremity (principal); I89.0 Lymphedema, not elsewhere classified; L97.222 Non-pressure chronic ulcer of left calf with fat layer exposed; E66.01 Morbid (severe) obesity due to excess calories; E11.622 Type 2 diabetes mellitus with other skin ulcer; I96 Gangrene, not elsewhere classified; Z68.25 Body mass index [BMI] 25.0-25.9, adult | CPT/HCPCS: 11042; 11045; A6253; G0463 ==

== ENCOUNTER → 2020-08-20 | Outpatient (CLI) | payer BC | LOC: WOUNDCARE 14:21 | PROVIDERS: ATTEND Surgery | DX: I87.332 Chronic venous hypertension (idiopathic) with ulcer and inflammation of left lower extremity (principal); I89.0 Lymphedema, not elsewhere classified; I96 Gangrene, not elsewhere classified; L97.222 Non-pressure chronic ulcer of left calf with fat layer exposed; E11.622 Type 2 diabetes mellitus with other skin ulcer; E66.01 Morbid (severe) obesity due to excess calories; Z68.25 Body mass index [BMI] 25.0-25.9, adult | CPT/HCPCS: 11042; 11045; A6253; G0463 ==

== ENCOUNTER → 2020-08-27 | Outpatient (CLI) | payer BC | LOC: WOUNDCARE 13:46 | PROVIDERS: ATTEND Surgery | DX: E11.52 Type 2 diabetes mellitus with diabetic peripheral angiopathy with gangrene (principal); E11.622 Type 2 diabetes mellitus with other skin ulcer; I96 Gangrene, not elsewhere classified; L97.222 Non-pressure chronic ulcer of left calf with fat layer exposed; I89.0 Lymphedema, not elsewhere classified; E66.01 Morbid (severe) obesity due to excess calories; I87.332 Chronic venous hypertension (idiopathic) with ulcer and inflammation of left lower extremity; Z68.25 Body mass index [BMI] 25.0-25.9, adult | CPT/HCPCS: 29581; A6253; G0463 ==

== ENCOUNTER → 2020-09-03 | Outpatient (CLI) | payer BC | LOC: WOUNDCARE 14:02 | PROVIDERS: ATTEND Surgery | DX: I87.332 Chronic venous hypertension (idiopathic) with ulcer and inflammation of left lower extremity (principal); I89.0 Lymphedema, not elsewhere classified; L97.222 Non-pressure chronic ulcer of left calf with fat layer exposed; E66.01 Morbid (severe) obesity due to excess calories; E11.622 Type 2 diabetes mellitus with other skin ulcer; E11.52 Type 2 diabetes mellitus with diabetic peripheral angiopathy with gangrene | CPT/HCPCS: 29581 ==

== ENCOUNTER → 2020-09-10 | Outpatient (CLI) | payer BC | LOC: WOUNDCARE 14:06 | PROVIDERS: ATTEND Surgery | DX: I87.332 Chronic venous hypertension (idiopathic) with ulcer and inflammation of left lower extremity (principal); I89.0 Lymphedema, not elsewhere classified; I96 Gangrene, not elsewhere classified; E66.01 Morbid (severe) obesity due to excess calories; E11.622 Type 2 diabetes mellitus with other skin ulcer; L97.222 Non-pressure chronic ulcer of left calf with fat layer exposed; L92.8 Other granulomatous disorders of the skin and subcutaneous tissue; Z68.25 Body mass index [BMI] 25.0-25.9, adult | CPT/HCPCS: 11042; 11045; A6253; G0463 ==

== ENCOUNTER → 2020-09-24 | Outpatient (CLI) | payer BC | LOC: WOUNDCARE 14:21 | PROVIDERS: ATTEND Surgery | DX: I87.332 Chronic venous hypertension (idiopathic) with ulcer and inflammation of left lower extremity (principal); I89.0 Lymphedema, not elsewhere classified; L97.222 Non-pressure chronic ulcer of left calf with fat layer exposed; E66.01 Morbid (severe) obesity due to excess calories; E11.622 Type 2 diabetes mellitus with other skin ulcer; L92.8 Other granulomatous disorders of the skin and subcutaneous tissue; E11.52 Type 2 diabetes mellitus with diabetic peripheral angiopathy with gangrene | CPT/HCPCS: 11042; 11045; A6253; G0463 ==

== ENCOUNTER → 2020-10-01 | Outpatient (CLI) | payer BC | LOC: WOUNDCARE 13:58 | PROVIDERS: ATTEND Surgery | DX: I87.332 Chronic venous hypertension (idiopathic) with ulcer and inflammation of left lower extremity (principal); I89.0 Lymphedema, not elsewhere classified; L97.222 Non-pressure chronic ulcer of left calf with fat layer exposed; I96 Gangrene, not elsewhere classified; E66.01 Morbid (severe) obesity due to excess calories; E11.622 Type 2 diabetes mellitus with other skin ulcer; L92.8 Other granulomatous disorders of the skin and subcutaneous tissue; Z68.25 Body mass index [BMI] 25.0-25.9, adult | CPT/HCPCS: 29581 ==

== ENCOUNTER → 2020-10-22 | Outpatient (CLI) | payer BC | LOC: WOUNDCARE 13:57 | PROVIDERS: ATTEND Surgery | DX: I87.332 Chronic venous hypertension (idiopathic) with ulcer and inflammation of left lower extremity (principal); I96 Gangrene, not elsewhere classified; I89.0 Lymphedema, not elsewhere classified; E11.622 Type 2 diabetes mellitus with other skin ulcer; L97.222 Non-pressure chronic ulcer of left calf with fat layer exposed; L92.8 Other granulomatous disorders of the skin and subcutaneous tissue; E66.01 Morbid (severe) obesity due to excess calories; Z68.45 Body mass index [BMI] 70 or greater, adult | CPT/HCPCS: 11042; 11045; G0463 ==

== ENCOUNTER → 2020-10-29 | Outpatient (CLI) | payer BC | LOC: WOUNDCARE 14:18 | PROVIDERS: ATTEND Orthopaedic Surgery Hand Surgery | DX: I87.332 Chronic venous hypertension (idiopathic) with ulcer and inflammation of left lower extremity (principal); I89.0 Lymphedema, not elsewhere classified; I96 Gangrene, not elsewhere classified; E11.622 Type 2 diabetes mellitus with other skin ulcer; L97.222 Non-pressure chronic ulcer of left calf with fat layer exposed; L92.8 Other granulomatous disorders of the skin and subcutaneous tissue; E66.01 Morbid (severe) obesity due to excess calories; Z68.45 Body mass index [BMI] 70 or greater, adult | CPT/HCPCS: 11042; G0463 ==

== ENCOUNTER → 2020-11-05 | Outpatient (CLI) | payer BC | LOC: WOUNDCARE 14:03 | PROVIDERS: ATTEND Surgery | DX: I87.331 Chronic venous hypertension (idiopathic) with ulcer and inflammation of right lower extremity (principal); I89.0 Lymphedema, not elsewhere classified; L97.222 Non-pressure chronic ulcer of left calf with fat layer exposed; E66.01 Morbid (severe) obesity due to excess calories; E11.622 Type 2 diabetes mellitus with other skin ulcer; L92.8 Other granulomatous disorders of the skin and subcutaneous tissue; I96 Gangrene, not elsewhere classified; Z68.45 Body mass index [BMI] 70 or greater, adult | CPT/HCPCS: 11042; 11045; G0463 ==

== ENCOUNTER → 2020-11-26 | Outpatient (CLI) | payer BC | LOC: WOUNDCARE 13:46 | PROVIDERS: ATTEND Surgery | DX: I87.332 Chronic venous hypertension (idiopathic) with ulcer and inflammation of left lower extremity (principal); I89.0 Lymphedema, not elsewhere classified; I96 Gangrene, not elsewhere classified; E66.01 Morbid (severe) obesity due to excess calories; E11.622 Type 2 diabetes mellitus with other skin ulcer; L97.222 Non-pressure chronic ulcer of left calf with fat layer exposed; L92.8 Other granulomatous disorders of the skin and subcutaneous tissue; Z68.45 Body mass index [BMI] 70 or greater, adult | CPT/HCPCS: 11042 ==

== ENCOUNTER → 2020-12-03 | Outpatient (CLI) | payer BC | LOC: WOUNDCARE 14:08 | PROVIDERS: ATTEND Surgery | DX: I87.332 Chronic venous hypertension (idiopathic) with ulcer and inflammation of left lower extremity (principal); I89.0 Lymphedema, not elsewhere classified; I96 Gangrene, not elsewhere classified; E66.01 Morbid (severe) obesity due to excess calories; E11.622 Type 2 diabetes mellitus with other skin ulcer; L97.222 Non-pressure chronic ulcer of left calf with fat layer exposed; L92.8 Other granulomatous disorders of the skin and subcutaneous tissue; Z68.45 Body mass index [BMI] 70 or greater, adult | CPT/HCPCS: 11042; G0463 ==

== ENCOUNTER → 2020-12-10 | Outpatient (CLI) | payer BC | LOC: WOUNDCARE 14:11 | PROVIDERS: ATTEND Surgery | DX: I87.332 Chronic venous hypertension (idiopathic) with ulcer and inflammation of left lower extremity (principal); I89.0 Lymphedema, not elsewhere classified; L97.222 Non-pressure chronic ulcer of left calf with fat layer exposed; E66.01 Morbid (severe) obesity due to excess calories; E11.622 Type 2 diabetes mellitus with other skin ulcer; L92.8 Other granulomatous disorders of the skin and subcutaneous tissue; E11.52 Type 2 diabetes mellitus with diabetic peripheral angiopathy with gangrene | CPT/HCPCS: 11042 ==

== ENCOUNTER → 2020-12-17 | Outpatient (CLI) | payer BC | LOC: WOUNDCARE 13:55 | PROVIDERS: ATTEND Surgery | DX: I87.332 Chronic venous hypertension (idiopathic) with ulcer and inflammation of left lower extremity (principal); I96 Gangrene, not elsewhere classified; I89.0 Lymphedema, not elsewhere classified; E11.622 Type 2 diabetes mellitus with other skin ulcer; L97.222 Non-pressure chronic ulcer of left calf with fat layer exposed; L92.8 Other granulomatous disorders of the skin and subcutaneous tissue | CPT/HCPCS: 11042; G0463 ==

== ENCOUNTER → 2020-12-24 | Outpatient (CLI) | payer BC | LOC: WOUNDCARE 14:12 | PROVIDERS: ATTEND Surgery | DX: I87.332 Chronic venous hypertension (idiopathic) with ulcer and inflammation of left lower extremity (principal); I89.0 Lymphedema, not elsewhere classified; L97.222 Non-pressure chronic ulcer of left calf with fat layer exposed; E66.01 Morbid (severe) obesity due to excess calories; E11.622 Type 2 diabetes mellitus with other skin ulcer; L92.8 Other granulomatous disorders of the skin and subcutaneous tissue; E11.52 Type 2 diabetes mellitus with diabetic peripheral angiopathy with gangrene | CPT/HCPCS: 11042; G0463 ==

== ENCOUNTER → 2021-01-07 | Outpatient (CLI) | payer BC | LOC: WOUNDCARE 14:05 | PROVIDERS: ATTEND Surgery | DX: I87.332 Chronic venous hypertension (idiopathic) with ulcer and inflammation of left lower extremity (principal); I96 Gangrene, not elsewhere classified; I89.0 Lymphedema, not elsewhere classified; L97.222 Non-pressure chronic ulcer of left calf with fat layer exposed; E66.01 Morbid (severe) obesity due to excess calories; E11.622 Type 2 diabetes mellitus with other skin ulcer; Z68.45 Body mass index [BMI] 70 or greater, adult | CPT/HCPCS: 11042; G0463 ==

== ENCOUNTER → 2021-01-14 | Outpatient (CLI) | payer BC | LOC: WOUNDCARE 14:06 | PROVIDERS: ATTEND Surgery | DX: I87.332 Chronic venous hypertension (idiopathic) with ulcer and inflammation of left lower extremity (principal); I96 Gangrene, not elsewhere classified; I89.0 Lymphedema, not elsewhere classified; L97.222 Non-pressure chronic ulcer of left calf with fat layer exposed; E11.622 Type 2 diabetes mellitus with other skin ulcer; E66.01 Morbid (severe) obesity due to excess calories; Z68.45 Body mass index [BMI] 70 or greater, adult | CPT/HCPCS: 99212 ==

== ENCOUNTER → 2021-01-21 | Outpatient (CLI) | payer BC | LOC: WOUNDCARE 13:55 | PROVIDERS: ATTEND Surgery | DX: I87.332 Chronic venous hypertension (idiopathic) with ulcer and inflammation of left lower extremity (principal); I89.0 Lymphedema, not elsewhere classified; L97.222 Non-pressure chronic ulcer of left calf with fat layer exposed; E66.01 Morbid (severe) obesity due to excess calories; E11.622 Type 2 diabetes mellitus with other skin ulcer; E11.52 Type 2 diabetes mellitus with diabetic peripheral angiopathy with gangrene | CPT/HCPCS: 11042; G0463 ==

== ENCOUNTER → 2021-01-28 | Outpatient (CLI) | payer BC | LOC: WOUNDCARE 14:00 | PROVIDERS: ATTEND Surgery | DX: E11.52 Type 2 diabetes mellitus with diabetic peripheral angiopathy with gangrene (principal); E11.622 Type 2 diabetes mellitus with other skin ulcer; I96 Gangrene, not elsewhere classified; I87.332 Chronic venous hypertension (idiopathic) with ulcer and inflammation of left lower extremity; I89.0 Lymphedema, not elsewhere classified; E66.01 Morbid (severe) obesity due to excess calories; L97.222 Non-pressure chronic ulcer of left calf with fat layer exposed | CPT/HCPCS: 11042; G0463 ==

== ENCOUNTER → 2021-02-04 | Outpatient (CLI) | payer BC | LOC: WOUNDCARE 14:37 | PROVIDERS: ATTEND Surgery | DX: I87.332 Chronic venous hypertension (idiopathic) with ulcer and inflammation of left lower extremity (principal); I89.0 Lymphedema, not elsewhere classified; E66.01 Morbid (severe) obesity due to excess calories; E11.622 Type 2 diabetes mellitus with other skin ulcer; L97.222 Non-pressure chronic ulcer of left calf with fat layer exposed | CPT/HCPCS: 11042; G0463 ==

== ENCOUNTER → 2021-02-11 | Outpatient (CLI) | payer BC | LOC: WOUNDCARE 11:09 | PROVIDERS: ATTEND Surgery | DX: I87.332 Chronic venous hypertension (idiopathic) with ulcer and inflammation of left lower extremity (principal); I89.0 Lymphedema, not elsewhere classified; E11.621 Type 2 diabetes mellitus with foot ulcer | CPT/HCPCS: 29581; G0463 ==

== ENCOUNTER → 2021-02-18 | Outpatient (CLI) | payer BC | LOC: WOUNDCARE 13:53 | PROVIDERS: ATTEND Surgery | DX: I87.332 Chronic venous hypertension (idiopathic) with ulcer and inflammation of left lower extremity (principal); I96 Gangrene, not elsewhere classified; I89.0 Lymphedema, not elsewhere classified; L97.222 Non-pressure chronic ulcer of left calf with fat layer exposed; E11.622 Type 2 diabetes mellitus with other skin ulcer; E66.01 Morbid (severe) obesity due to excess calories; Z68.45 Body mass index [BMI] 70 or greater, adult | CPT/HCPCS: 11042; G0463 ==

== ENCOUNTER → 2021-02-25 | Outpatient (CLI) | payer BC | LOC: WOUNDCARE 14:08 | PROVIDERS: ATTEND Surgery | DX: I87.332 Chronic venous hypertension (idiopathic) with ulcer and inflammation of left lower extremity (principal); I96 Gangrene, not elsewhere classified; E11.622 Type 2 diabetes mellitus with other skin ulcer; I89.0 Lymphedema, not elsewhere classified; L97.222 Non-pressure chronic ulcer of left calf with fat layer exposed; E66.01 Morbid (severe) obesity due to excess calories; Z68.45 Body mass index [BMI] 70 or greater, adult | CPT/HCPCS: 11042; G0463 ==

== ENCOUNTER → 2021-03-04 | Outpatient (CLI) | payer BC | LOC: WOUNDCARE 14:08 | PROVIDERS: ATTEND Surgery | DX: I87.332 Chronic venous hypertension (idiopathic) with ulcer and inflammation of left lower extremity (principal); I89.0 Lymphedema, not elsewhere classified; L97.222 Non-pressure chronic ulcer of left calf with fat layer exposed; E66.01 Morbid (severe) obesity due to excess calories; E11.622 Type 2 diabetes mellitus with other skin ulcer; E11.52 Type 2 diabetes mellitus with diabetic peripheral angiopathy with gangrene | CPT/HCPCS: 11042; G0463 ==

== ENCOUNTER → 2021-03-11 | Outpatient (CLI) | payer BC | LOC: WOUNDCARE 13:53 | PROVIDERS: ATTEND Surgery | DX: I87.332 Chronic venous hypertension (idiopathic) with ulcer and inflammation of left lower extremity (principal); I96 Gangrene, not elsewhere classified; I89.0 Lymphedema, not elsewhere classified; L97.222 Non-pressure chronic ulcer of left calf with fat layer exposed; E11.622 Type 2 diabetes mellitus with other skin ulcer; E66.01 Morbid (severe) obesity due to excess calories; Z68.45 Body mass index [BMI] 70 or greater, adult | CPT/HCPCS: 11042; G0463 ==

== ENCOUNTER → 2021-03-18 | Outpatient (CLI) | payer BC | LOC: WOUNDCARE 14:03 | PROVIDERS: ATTEND Surgery | DX: I87.332 Chronic venous hypertension (idiopathic) with ulcer and inflammation of left lower extremity (principal); I89.0 Lymphedema, not elsewhere classified; L97.222 Non-pressure chronic ulcer of left calf with fat layer exposed; E66.01 Morbid (severe) obesity due to excess calories; E11.622 Type 2 diabetes mellitus with other skin ulcer; E11.52 Type 2 diabetes mellitus with diabetic peripheral angiopathy with gangrene | CPT/HCPCS: 11042; A6234; G0463 ==

== ENCOUNTER → 2021-03-25 | Outpatient (CLI) | payer BC | LOC: WOUNDCARE 13:50 | PROVIDERS: ATTEND Surgery | DX: I87.332 Chronic venous hypertension (idiopathic) with ulcer and inflammation of left lower extremity (principal); I89.0 Lymphedema, not elsewhere classified; L97.222 Non-pressure chronic ulcer of left calf with fat layer exposed; E66.01 Morbid (severe) obesity due to excess calories; E11.622 Type 2 diabetes mellitus with other skin ulcer; E11.52 Type 2 diabetes mellitus with diabetic peripheral angiopathy with gangrene | CPT/HCPCS: 11042; G0463 ==

== ENCOUNTER → 2021-04-01 | Outpatient (CLI) | payer BC | LOC: WOUNDCARE 13:47 | PROVIDERS: ATTEND Surgery | DX: I87.332 Chronic venous hypertension (idiopathic) with ulcer and inflammation of left lower extremity (principal); I89.0 Lymphedema, not elsewhere classified; L97.222 Non-pressure chronic ulcer of left calf with fat layer exposed; E66.01 Morbid (severe) obesity due to excess calories; E11.622 Type 2 diabetes mellitus with other skin ulcer | CPT/HCPCS: 99212 ==